=== PATIENT | female | born 1965 | race Hispanic/Latino ===

== ENCOUNTER 2019-03-15 10:59 | Emergency (ER) | payer BC ==
[2019-03-15 11:23] VITALS: BP 165/98; PULSE 88; RESP 18; TEMP 98.8; O2SAT 98
--- NOTE | 2019-03-15 13:33 | RAD ---
Date of service: 03/15/2019 PROCEDURE: Left Ankle Radiographs. HISTORY: s/p fall - r/o fx COMPARISON: None available. TECHNIQUE: 3 views obtained. FINDINGS: BONES: There is a displaced transverse fracture through the posterior medial malleolus JOINTS: Normal. No osteoarthritis. Ankle mortise maintained. Talar dome intact SOFT TISSUES: Normal. OTHER FINDINGS: None. IMPRESSION: There is a displaced transverse fracture through the posterior medial malleolus
--- NOTE | 2019-03-15 13:35 | RAD ---
Date of service: 03/15/2019 PROCEDURE: Left Foot Radiographs. HISTORY: s/p fall - r/o fx COMPARISON: None. TECHNIQUE: 3 views obtained. FINDINGS: BONES: Normal. No fracture. JOINTS: Normal. SOFT TISSUES: Normal. OTHER FINDINGS: Displaced fracture of the medial malleolus IMPRESSION: Fracture of the medial malleolus
--- NOTE | 2019-03-15 17:04 | ED PDOC ---
Arrival/HPI - General Chief Complaint: Lower Extremity Problem/Injury Historian: Patient - History of Present Illness Narrative History of Present Illness (Text): 03/15/19 16:50 A 53 year old female, whose past medical history includes , presents to the em ergency department complaining of left foot/ankle pain for 3 days. Patient reports she was walking down steps and missed the step, resulting in falling to the ground. She denies any symptoms prior to fall. Patient denies any head trauma, or any other complaints at this time. Time/Duration: < week (3 days) Past Medical History - Provider Review Nursing Documentation Reviewed: Yes - Infectious Disease Hx of Infectious Diseases: None - Reproductive Menopause: Yes - Cardiac Hx Cardiac Disorders: No - Pulmonary Hx Respiratory Disorders: No - Psychiatric Hx Substance Use: No - Anesthesia Hx Anesthesia Reactions: No Family/Social History - Physician Review Nursing Documentation Reviewed: Yes Family/Social History: No Known Family HX Smoking Status: Unknown If Ever Smoked Hx Alcohol Use: No Hx Substance Use: No Allergies/Home Meds Allergies/Adverse Reactions: Allergies No Known Allergies Allergy (Verified 03/15/19 11:23) Review of Systems - Physician Review All systems were reviewed & negative as marked: Yes - Review of Systems Constitutional: absent: Other (no head trauma) Musculoskeletal: Other (left ankle/foot) Physical Exam Vital Signs Reviewed: Yes Vital Signs Temp Pulse Resp BP Pulse Ox 03/15/19 11:19 98.8 F 88 18 165/98 H 98 Temperature: Afebrile Blood Pressure: Hypertensive Pulse: Regular Respiratory Rate: Normal Appearance: Positive for: Well-Appearing, Non-Toxic, Comfortable Pain Distress: None Mental Status: Positive for: Alert and Oriented X 3 - Systems Exam Head: Present: Atraumatic, Normocephalic Pupils: Present: PERRL Extroacular Muscles: Present: EOMI Conjunctiva: Present: Normal Mouth: Present: Moist Mucous Membranes Neck: Present: Normal Range of Motion Respiratory/Chest: Present: Clear to Auscultation, Good Air Exchange. No: Respiratory Distress, Accessory Muscle Use Cardiovascular: Present: Regular Rate and Rhythm, Normal S1, S2. No: Murmurs Abdomen: No: Tenderness, Distention, Peritoneal Signs Back: Present: Normal Inspection Upper Extremity: Present: Normal Inspection. No: Cyanosis, Edema Lower Extremity: Present: Normal ROM, Tenderness (medial aspect of left ankle), Swelling (left ankle/foot), Other (ecchymosis) Neurological: Present: GCS=15, CN II-XII Intact, Speech Normal Skin: Present: Warm, Dry, Normal Color. No: Rashes Psychiatric: Present: Alert, Oriented x 3, Normal Insight, Normal Concentration Medical Decision Making ED Course and Treatment: 03/15/19 17:05 Impression: 53 year old female with left foot/ankle pain s/p fall. Physical exam shows left ankle/foot swelling, left foot ecchymosis, tenderness to medial aspect of the ankle, good ROM. Plan: -- Left Ankle X-Ray -- Left Foot X-Ray -- Toradol -- Reassess and disposition Progress Notes: 03/15/2019 13:29 Left Ankle X-Ray IMPRESSION: There is a displaced tranverse fracture through the posterior medial malleolus. Dictator: Luan Monsalve MD 03/15/2019 13:31 Left Foot X-Ray IMPRESSION: Fracture of the medial malleolus. Dictator: Luan Monsalve MD 03/15/19 17:05 Posterior splint placed on left foot/ankle, good capillary refill. Patient will follow-up with ortho, and patient has been instructed to not bare weight on left leg. - RAD Interpretation Radiology Orders: 03/15/19 11:51 ANKLE LEFT 3 VIEWS ROUTINE [RAD] Stat FOOT LEFT 3 VIEWS ROUTINE [RAD] Stat - Medication Orders Current Medication Orders: Discontinued Medications Ketorolac Tromethamine (Toradol) 60 mg IM STAT STA Stop: 03/15/19 11:52 Last Admin: 03/15/19 12:07 Dose: 60 mg MAR Pain Assessment Document 03/15/19 12:07 CD (Rec: 03/15/19 12:08 CD [id number] Pain Reassessment Is this a pain reassessment? No Sleep Is patient sleeping during reassessment? No Presence of Pain Presence of Pain Yes Pain Scale Used Protocol: PSCALES Pain Scale Used Numeric Location Left, Right or Bilateral Left Pain Location Body Site Foot Description Description Intermittent Intensity of Pain at present 10 IM Administration Charges Document 03/15/19 12:07 CD (Rec: 03/15/19 12:08 CD [id number] Injection Site MAR Injection Site Left Gluteus Alex Charges for Administration # of IM Administrations 1 - Scribe Statement The provider has reviewed the documentation as recorded by the Stephen Adamson Provider Stephen Attestation: All medical record entries made by the Stephen were at my direction and personally dictated by me. I have reviewed the chart and agree that the record accurately reflects my personal performance of the history, physical exam, medical decision making, and the department course for this patient. I have also personally directed, reviewed, and agree with the discharge instructions and disposition. Disposition/Present on Arrival - Present on Arrival Any Indicators Present on Arrival: No History of DVT/PE: No History of Uncontrolled Diabetes: No Urinary Catheter: No History of Decub. Ulcer: No History Surgical Site Infection Following: None - Disposition Have Diagnosis and Disposition been Completed?: Yes Diagnosis: Ankle fracture Disposition: HOME/ ROUTINE Disposition Time: 13:15 Condition: GOOD Discharge Instructions (ExitCare): How to Use Crutches, Ankle Fracture (DC) Additional Instructions: UMA MOON, thank you for letting us take care of you today. The emergency medical care you received today was directed at your acute symptoms. If you were prescribed any medication, please fill it and take as directed. It may take several days for your symptoms to resolve. Return to the Emergency Department if your symptoms worsen, do not improve, or if you have any other problems. Please contact your doctor or call one of the physicians/clinics you have been referred to that are listed on the Patient Visit Information form that is included in your discharge packet. Bring any paperwork you were given at discharge with you along with any medications you are taking to your follow up visit. Our treatment cannot replace ongoing medical care by a primary care provider outside of the emergency department. Thank you for allowing the [facility] team to be part of your care today. Do not put any weight on your left leg. Follow up with your orthopedic doctor or the one supplied in this paperwork in the next 1-2 days. Prescriptions: oxyCODONE [oxyCODONE Immediate Release Tab] 5 mg PO Q6 PRN #15 tab PRN Reason: Pain, Severe (8-10) Referrals: Maikel Brady MD [Staff Provider] - Follow up with primary Forms: [employer] ([place])
== END 2019-03-15 14:20 | disposition home or self-care (01) ==
LOC: ED 10:59
DX: S82.52XA Displaced fracture of medial malleolus of left tibia, initial encounter for closed fracture (principal); W10.9XXA Fall (on) (from) unspecified stairs and steps, initial encounter
CPT/HCPCS: 73610; 73630; 96372; 99283; J1885

== ENCOUNTER 2019-03-17 10:55 | Inpatient (IN) | payer BC ==
[2019-03-17 11:16] VITALS: BMI 26.5
--- NOTE | 2019-03-17 11:21 | ED PDOC ---
Arrival/HPI - General Historian: Patient - History of Present Illness Narrative History of Present Illness (Text): 03/17/19 11:19 Fátima Gaviria is a 53 year old female, with no past medical history, who presents to the emergency department complaining of left ankle pain since 5 days ago s/p mechanical fall. Patient states missing a step when walking down the stairs and falling to the ground but denies head injury. Per visit on 03/15/2019, patient appreciates left ankle fracture and was advised to follow up with Dr. Zuñiga (Ortho) who was unable to make an appointment and advised patient to visit ED. Patient informs taking tylenol and aleve for pain. Patient is able to ambulate with crutches in the ED. Patient denies paresthesias, discoloration to left ankle, focal weakness, sensory deficits, or any other complaints. Time/Duration: < week (5 days) Symptom Course: Unchanged Activities at Onset: Light Context: Home Past Medical History - Provider Review Nursing Documentation Reviewed: Yes - Infectious Disease Hx of Infectious Diseases: None - Cardiac Hx Cardiac Disorders: No - Pulmonary Hx Respiratory Disorders: No - Psychiatric Hx Substance Use: No - Anesthesia Hx Anesthesia Reactions: No Family/Social History - Physician Review Nursing Documentation Reviewed: Yes Family/Social History: Unknown Family HX Smoking Status: Unknown If Ever Smoked Hx Alcohol Use: No Hx Substance Use: No Allergies/Home Meds Allergies/Adverse Reactions: Allergies No Known Allergies Allergy (Verified 03/15/19 11:23) Home Medications: Home Meds Medication Instructions Recorded Confirmed No Known Home Med 03/17/19 03/17/19 Review of Systems - Physician Review All systems were reviewed & negative as marked: Yes - Review of Systems Musculoskeletal: Arthralgias (left ankle pain secondary to fracture). absent: Other (discolorations to left ankle) Skin: absent: Other Neurological: absent: Focal Weakness, Other (sensory deficit, paresthesias) Physical Exam Vital Signs Reviewed: Yes Temperature: Afebrile Blood Pressure: Hypertensive Pulse: Tachycardic Respiratory Rate: Normal Appearance: Positive for: Well-Appearing, Non-Toxic, Comfortable Pain Distress: None Mental Status: Positive for: Alert and Oriented X 3 - Systems Exam Head: Present: Atraumatic, Normocephalic Pupils: Present: PERRL Extroacular Muscles: Present: EOMI Conjunctiva: Present: Normal Mouth: Present: Moist Mucous Membranes Neck: Present: Normal Range of Motion Respiratory/Chest: Present: Clear to Auscultation, Good Air Exchange. No: Respiratory Distress, Accessory Muscle Use, Wheezes, Rales, Rhonchi Cardiovascular: Present: Regular Rate and Rhythm, Normal S1, S2. No: Murmurs, Rub, Gallop Abdomen: Present: Normal Bowel Sounds. No: Tenderness, Distention, Peritoneal Signs, Rebound, Guarding Back: Present: Normal Inspection Upper Extremity: Present: Tenderness (medial aspect of left ankle), Swelling (left ankle/foot), Other (ecchymosis). No: Cyanosis, Edema Lower Extremity: Present: Other (posterior splint noted over RLE. Able to wiggle toes, no cyanosis noted to toes.). No: Edema Neurological: Present: Speech Normal, Motor Func Grossly Intact, Normal Sensory Function Skin: Present: Warm, Dry, Normal Color. No: Rashes Psychiatric: Present: Alert, Oriented x 3, Normal Insight, Normal Concentration Medical Decision Making ED Course and Treatment: 03/17/19 11:19 Impression: Patient is a 53 year old female, with no significant past medical history, who presents to the emergency department complaining of left ankle pain secondary to left ankle fracture s/p fall 5 days ago. Plan: -- Labs --CT lower extremity w/o contrast -- Chest X-Ray 1V -- Oxycodone -- POC Urine -- Urinalysis -- Reassess and disposition Prior Visits: Notes and results from previous visits were reviewed. Patient was last seen in the emergency department on 03/15/19. Progress Notes: 03/17/19 12:[address] Zuñiga(orthopedic surgery), who requests CT of lower extremity and will take patient to OR tomorrow. He requests consult per Dr. Julius pang(medical service) for medical optimization. 03/17/19 12:[address] Bar who accepts patient for admission. - Lab Interpretations Lab Results: 03/17/19 11:51 03/17/19 11:51 Lab Results 03/17/19 11:51: Blood Type A POSITIVE, Antibody Screen Negative, BBK History Checked No verified bt 03/17/19 11:51: Sodium 140, Potassium 3.5 L, Chloride 101, Carbon Dioxide 23, Anion Gap 20, BUN 13, Creatinine 0.5 L, Est GFR ( Amer) > 60, Est GFR (Non-Af Amer) > 60, Random Glucose 88, Calcium 9.5, Magnesium 1.4 L, Total Bilirubin 0.7, AST 35, ALT 18, Alkaline Phosphatase 96, Total Protein 7.6, Albumin 4.5, Globulin 3.1, Albumin/Globulin Ratio 1.4 03/17/19 11:51: WBC 7.9, RBC 3.83, Hgb 13.6, Hct 40.0, MCV 104.4, MCH 35.5 H, MCHC 34.0, RDW 12.8, Plt Count 271, MPV 10.0, Neut % (Auto) 65.9, Lymph % (Auto) 26.5, [place] % (Auto) 5.6, Eos % (Auto) 1.7, Baso % (Auto) 0.3, Lymph # (Auto) 2.1, [place] # (Auto) 0.4, Eos # (Auto) 0.1, Baso # (Auto) 0.02, Absolute Neuts (auto) 5.19 I have reviewed the lab results: Yes - RAD Interpretation Narrative RAD Interpretations (Text): 03/17/19 13:03 Chest X-Ray shows: IMPRESSION: No active disease. 03/17/19 13:26 CT Left Ankle shows: IMPRESSION: There is a displaced transverse fracture through the medial malleolus. There is a nondisplaced fracture through the posterior lateral articular surface of the tibia and a displaced fracture of the anterior lateral surface of the distal tibia through the articular surface. Applications Support Specialist: Radiologist - EKG Interpretation EKG Interpretation (Text): 03/17/19 11:35 Reviewed EKG, shows: Sinus Tachycardia at [address] abnormalities. QT Prolongation. Interpreted by ED Physician: Yes Type: 12 lead EKG - Scribe Statement The provider has reviewed the documentation as recorded by the Scribe Danny Mir All medical record entries made by the Scribe were at my direction and personally dictated by me. I have reviewed the chart and agree that the record accurately reflects my personal performance of the history, physical exam, medical decision making, and the department course for this patient. I have also personally directed, reviewed, and agree with the discharge instructions and disposition. Disposition/Present on Arrival - Present on Arrival History of DVT/PE: No History of Uncontrolled Diabetes: No Urinary Catheter: No History Surgical Site Infection Following: None - Disposition
[2019-03-17] MEDS ORDERED: Oxycodone/Acetaminophen 5/325 mg Tab PO STA (11:44)
[2019-03-17 12:10] LABS: BASO # 0.02 K/mm3 (0.0-2.0); BASO % 0.3 % (0.0-3.0); EOS # 0.1 (0.0-0.7); EOS % 1.7 % (1.5-5.0); HEMOGLOBIN 13.6 g/dL (12.0-16.0); LYMPH # 2.1 (1.2-3.4); LYMPH % 26.5 % (22.0-35.0); MEAN CELL VOLUME 104.4 fl (80.0-105.0); MEAN CORPUSCULAR HEMOGLOBIN 35.5 pg (25.0-35.0); MONO # 0.4 (0.1-0.6); MONO % 5.6 % (1.0-6.0); RBC 3.83 10^6/uL (3.5-6.1); RED CELL DISTRIBUTION WIDTH 12.8 % (11.5-14.5); WHITE BLOOD COUNT 7.9 10^3/uL (4.5-11.0)
[2019-03-17 12:11] LABS: ALB/GLOB RATIO 1.4 (1.1-1.8); ALBUMIN 4.5 g/dL (3.0-4.8); ALT/SGPT 18 U/L (7-56); AST/SGOT 35 U/L (14-36); BLOOD UREA NITROGEN 13 mg/dL (7-21); CALCIUM 9.5 mg/dL (8.4-10.5); GFR NON-AFRICAN AMERICAN > 60
--- NOTE | 2019-03-17 13:06 | RAD ---
Date of service: 03/17/2019 PROCEDURE: CHEST RADIOGRAPH, 1 VIEW HISTORY: pre op COMPARISON: None available. FINDINGS: LUNGS: Clear. PLEURA: No pneumothorax or pleural fluid seen. CARDIOVASCULAR: No aortic atherosclerotic calcification present. Normal. OSSEOUS STRUCTURES: No significant abnormalities. VISUALIZED UPPER ABDOMEN: Normal. OTHER FINDINGS: None. IMPRESSION: No active disease.
--- NOTE | 2019-03-17 13:30 | CT ---
Date of service: 03/17/2019 PROCEDURE: CT of the left ankle HISTORY: ankle fx COMPARISON: TECHNIQUE: Radiation dose: Total exam DLP = 449 mGy-cm. This CT exam was performed using one or more of the following dose reduction techniques: Automated exposure control, adjustment of the mA and/or kV according to patient size, and/or use of iterative reconstruction technique. FINDINGS: There is a displaced transverse fracture through the medial malleolus. There is a nondisplaced fracture through the posterior lateral articular surface of the tibia and a displaced fracture of the anterior lateral surface of the distal tibia through the articular surface. The fibula is intact. The talus is unremarkable. A plaster cast is in place IMPRESSION: There is a displaced transverse fracture through the medial malleolus. There is a nondisplaced fracture through the posterior lateral articular surface of the tibia and a displaced fracture of the anterior lateral surface of the distal tibia through the articular surface.
[2019-03-17 14:50] LABS: URINE BILIRUBIN NEGATIVE (NEGATIVE); URINE BLOOD TRACE-INTACT (NEGATIVE); URINE GLUCOSE (UA) NEGATIVE (NEGATIVE); URINE LEUKOCYTE ESTERASE NEGATIVE Leu/uL (NEGATIVE); URINE PROTEIN NEGATIVE mg/dL (<30 mg/dL); URINE UROBILINOGEN 0.2 E.U./dL (<1 E.U./dL)
[2019-03-17 14:51] LABS: URINE APPEARANCE CLEAR (CLEAR); URINE COLOR YELLOW (YELLOW)
[2019-03-17 14:54] LABS: INR 1.05; PARTIAL THROMBOPLASTIN TIME 32.9 Seconds (26.9-38.3); PROTHROMBIN TIME 11.6 SECONDS (9.4-12.5)
[2019-03-17 14:59] LABS: URINE WBC 0 - 2 /hpf (0-6)
[2019-03-17 15:00] LABS: URINE BACTERIA MOD /hpf; URINE FINE GRANULAR CAST 0 - 2 /hpf; URINE HYALINE CAST 0 - 2 /hpf
[2019-03-17] MEDS ORDERED: Magnesium Oxide 400 mg Tab UD PO STA (15:04)
[2019-03-17] MEDS ORDERED: Potassium Chloride 20 mEq ER Tab PO STA (15:06)
[2019-03-17] MEDS: Morphine 2 mg/ml ISec IVP PRN ×3 (15:14→21:24)
--- NOTE | 2019-03-17 18:00 | CARD ---
APPROVED REPORT Date of service: 03/17/2019 EKG Measurement Heart [id number] <Conclusion> Sinus tachycardia Otherwise normal ECG
[2019-03-17] MEDS: Sodium Chloride 0.45% 1,000 ML IV SCH (18:36)
[2019-03-17] MEDS ORDERED: Pneumococcal 23-Valent Vaccine IM ONE (22:04)
[2019-03-18] MEDS: Morphine 2 mg/ml ISec IVP PRN ×6 (00:36→23:26)
--- NOTE | 2019-03-18 01:45 | HP ---
DATE OF EXAM: 03/17/2019 HISTORY OF PRESENT ILLNESS: She is a nice 53-year-old female who presents after having a mechanical fall 5 days ago with left ankle pain, missed a step, fell down stairs, no head injury. She has a left ankle fracture. She was being followed by Dr. Zuñiga, the orthopedic doctor and he had sent her to the emergency room and called me and asked me if I would put her on my service. PAST MEDICAL HISTORY: She has no medical history. No diabetes. No hypertension. No coronary disease. No history of surgery. FAMILY HISTORY: Unknown family history. SOCIAL HISTORY: No smoker. No drinking. No drugs. ALLERGIES: NO ALLERGIES. CURRENT MEDICATIONS: No medications. REVIEW OF SYSTEMS: No vision changes. No hearing changes. No sore throat. No chest pain. No shortness of breath. No abdominal pain. No nausea, vomiting, constipation, or diarrhea. No palpitations. No cough. The only thing she has going on is the left ankle pain secondary to fracture. No neurological focal weakness or deficits that she knows of. PHYSICAL EXAMINATION VITAL SIGNS: She has a 97.8 temperature, 88 pulse, 136/87 blood pressure, 18 respiratory rate, and 98% O2 sat on room air. When she came in of course we put pain medications. She had 112 pulse with a 163/89 blood pressure that is now down after pain medication. HEENT: Head; atraumatic, normocephalic. Extraocular muscles are intact. Pupils equally react to light. Throat is moist. NECK: Supple. HEART: Regular rate. LUNGS: Decreased breath sounds but clear to auscultation. ABDOMEN: Soft, nontender. Positive bowel sounds. EXTREMITIES: The left leg is in a cast. NEUROLOGIC: GCS is 15. Cranial nerves II through XII grossly intact. LABORATORY DATA: The urine was trace blood, negative for leukocytes, moderate bacteria. No urinary tract symptoms. A 140 sodium, potassium is 3.5, I will replace the potassium, BUN 13, creatinine 0.5, GFR is greater than 60, sugar is 88, calcium is 9.5, magnesium is 1.4, I will replace the magnesium, total bili is 0.7. AST is 35, ALT is 18, alk phos 96, total protein 7.6, albumin is 4.5, globulin 3.1. INR is 1.05. White count 7.9, hemoglobin 38.6, hematocrit 40, platelets of 271. Chest x-ray showed no active disease. EKG showed sinus tachycardia at 111. Her lower extremity CT scan showed there was a displaced transverse fracture through the medial malleolus. There was a nondisplaced fracture through the posterolateral articular surface of the tibia and displaced fracture of the anterolateral surface of the distal tibia. ASSESSMENT AND PLAN: She is medically cleared for her procedure tomorrow with Dr. Zuñiga, the orthopedic doctor. I am hoping she will do quite well. She is not going to eat anything after midnight. She has pain medications ordered. She is on morphine 1 mg IV every 3 hours as needed. She is going to be on a little bit of IV fluids. She is medically cleared for surgery. Arias Bar DO
[2019-03-18 07:13] LABS: MEAN CELL VOLUME 104.3 fl (80.0-105.0); MEAN CORPUSCULAR HEMOGLOBIN 34.5 pg (25.0-35.0); MEAN CORPUSCULAR HGB CONC 33.1 g/dl (31.0-37.0); MEAN PLATELET VOLUME 9.7 fl (7.0-11.0); RBC 3.48 10^6/uL (3.5-6.1); RED CELL DISTRIBUTION WIDTH 12.8 % (11.5-14.5); WHITE BLOOD COUNT 6.6 10^3/uL (4.5-11.0)
[2019-03-18 07:26] LABS: ALB/GLOB RATIO 1.4 (1.1-1.8); ALBUMIN 3.7 g/dL (3.0-4.8); ALT/SGPT 15 U/L (7-56); AST/SGOT 26 U/L (14-36); BLOOD UREA NITROGEN 11 mg/dL (7-21); CALCIUM 9.1 mg/dL (8.4-10.5); GFR NON-AFRICAN AMERICAN > 60
[2019-03-18] MEDS ORDERED: Propofol 10 mg/ml Inj (20 ML) ONE (09:28)
[2019-03-18] MEDS ORDERED: Lidocaine 1% Inj (20ml) ONE (09:29)
[2019-03-18] MEDS ORDERED: Midazolam 2 MG/2 ML VIAL ONE (09:29)
[2019-03-18] MEDS ORDERED: Bupivacaine 0.5% 50 ML IJ ONE (10:04)
[2019-03-18] MEDS ORDERED: Bacitracin Ointment 30 GM TUBE ONE (10:04)
--- NOTE | 2019-03-18 10:46 | MRI ---
MRI left ankle History: Bimalleolar fracture. Evaluate syndesmosis. Comparison: CT scan dated 03/17/2019 Technique: Multi-echo multiplanar sequences were performed through the left ankle without the use of intravenous contrast. Findings: Again identified is a vertically oriented posterior malleolar fracture of the distal tibia with intra-articular extension. Again identified are prominent fracture deformities of the medial malleolus of the distal tibia with intra-articular extension from anterior to posteriorly. Again identified is a prominent fracture deformity of the anterolateral distal tibia at the level of the insertion of the anterior tibiofibular ligament/syndesmosis with intra-articular extension. This is better delineated on the CT scan where the fracture fragment of the anterolateral tibia appears displaced laterally and anteriorly to the distal fibula Complete rupture of the anterior tibiofibular ligament with diastasis of the anterior tibiofibular joint space measuring up to 7 millimeters. Adjacent hemorrhage and edema within the extensor digitorum muscle belly. Moderate grade sprain with partial tearing of the posterior tibiofibular ligament which inserts onto the posterior malleolar fracture fragment. Partial tearing with moderate grade sprain of the anterior talofibular ligament. Low-grade sprain of the posterior talofibular ligament. Prominent fraying and attenuation within the deep fibers of the deltoid ligament suggestive for prominent tearing with high grade sprain. Reticulation and edema within the circumferential subcutaneous soft tissues. Anterior extensor tendons are preserved. Moderate tenosynovitis of the medial flexor tendon sheaths. Peroneal tendons are preserved. Mild increased signal seen at the level of Lisfranc ligament which may represent a low grade sprain and or mild partial tear. Achilles tendon is preserved. Plantar fascia is preserved. 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 Small to moderate ankle joint effusion. Degenerative changes noted at the dorsal aspect of the talonavicular joint space. Bone bruising and or subchondral osseous injury seen within the distal pole of the medial cuneiform bone Prominence of the middle subtalar joint space. Impression: 1. Again identified is a vertically oriented posterior malleolar fracture of the distal tibia with intra-articular extension. 2. Again identified are prominent fracture deformities of the medial malleolus of the distal tibia with intra-articular extension from anterior to posteriorly. 3. Again identified is a prominent fracture deformity of the anterolateral distal tibia at the level of the insertion of the anterior tibiofibular ligament/syndesmosis with intra-articular extension. This is better delineated on the CT scan where the fracture fragment of the anterolateral tibia appears displaced laterally and anteriorly to the distal fibula 4. Complete rupture of the anterior tibiofibular ligament with diastasis of the anterior tibiofibular joint space measuring up to 7 millimeters. Adjacent hemorrhage and edema within the extensor digitorum muscle belly. 5. Moderate grade sprain with partial tearing of the posterior tibiofibular ligament which inserts onto the posterior malleolar fracture fragment. 6. Partial tearing with moderate grade sprain of the anterior talofibular ligament. 7. Low-grade sprain of the posterior talofibular ligament. 8. Prominent fraying and attenuation within the deep fibers of the deltoid ligament suggestive for prominent tearing with high grade sprain. 9. Reticulation and edema within the circumferential subcutaneous soft tissues. 10. Moderate tenosynovitis of the medial flexor tendon sheaths. 11. Mild increased signal seen at the level of Lisfranc ligament which may represent a low grade sprain and or mild partial tear. 12. 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 13. Small to moderate ankle joint effusion. 14. Degenerative changes noted at the dorsal aspect of the talonavicular joint space. 15. Bone bruising and or subchondral osseous injury seen within the distal pole of the medial cuneiform bone 16. Prominence of the middle subtalar joint space.
[2019-03-18] MEDS ORDERED: CeFAZolin 1 gm in NS 100ml IVPB ONE (11:05)
--- NOTE | 2019-03-18 11:07 | MRI ---
MRI left forefoot History: Injury. Comparison: CT dated 03/17/2019 Technique: Multi-echo sequences were the left forefoot without the use of intravenous contrast. Findings: Please see separate report for evaluation of the midfoot and ankle. Failure of fat suppression at the level of the phalanges somewhat limits evaluation. Prominent motion artifact on the sagittal STIR sequences, markedly limits evaluation at that level. Prominent reticulation edema within the circumferential subcutaneous soft tissues most prominent dorsally. Mild focal signal abnormality seen within the distal medial cuneiform bone at its lateral aspect as demonstrated on series 6 images 10 through 12 as well as series 4, image 22. This may represent some mild bone bruising and or subchondral osseous injury. This is at/near the site of insertion of the adjacent Lisfranc ligament which is best demonstrated on series 6 images 9 through 11 as well as series 4 images 21 through 24. There is some fraying with increased signal seen within the mid to volar aspect of the Lisfranc ligament which may represent a moderate grade sprain with some questionable partial tearing. Clinical correlation. Moderate hallux valgus deformity with prominent reactive edema and degenerative changes noted at the 1st MTP joint space with associated osteochondral change at the 1st metatarsal head. Superimposed subchondral osseous injury and or bone bruising at this level can't be excluded. Additional degenerative changes noted at the 1st metatarsus sesamoid joint space. Small amount of fluid noted at the 1st MTP joint space. Clinical correlation. Again identified is a vertically oriented posterior malleolar fracture of the distal tibia with intra-articular extension. Again identified are prominent fracture deformities of the medial malleolus of the distal tibia with intra-articular extension from anterior to posteriorly. Again identified is a prominent fracture deformity of the anterolateral distal tibia at the level of the insertion of the anterior tibiofibular ligament/syndesmosis with intra-articular extension. This is better delineated on the CT scan where the fracture fragment of the anterolateral tibia appears displaced laterally and anteriorly to the distal fibula Complete rupture of the anterior tibiofibular ligament with diastasis of the anterior tibiofibular joint space measuring up to 7 millimeters. Adjacent hemorrhage and edema within the extensor digitorum muscle belly. Moderate grade sprain with partial tearing of the posterior tibiofibular ligament which inserts onto the posterior malleolar fracture fragment. Partial tearing with moderate grade sprain of the anterior talofibular ligament. Low-grade sprain of the posterior talofibular ligament. Prominent fraying and attenuation within the deep fibers of the deltoid ligament suggestive for prominent tearing with high grade sprain. Moderate tenosynovitis of the medial flexor tendon sheaths. 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 Impression: Please see separate report for evaluation of the midfoot and ankle. Failure of fat suppression at the level of the phalanges somewhat limits evaluation. Prominent motion artifact on the sagittal STIR sequences, markedly limits evaluation at that level. 1. Prominent reticulation edema within the circumferential subcutaneous soft tissues most prominent dorsally. 2. Mild focal signal abnormality seen within the distal medial cuneiform bone at its lateral aspect as demonstrated on series 6 images 10 through 12 as well as series 4, image 22. This may represent some mild bone bruising and or subchondral osseous injury. This is at/near the site of insertion of the adjacent Lisfranc ligament which is best demonstrated on series 6 images 9 through 11 as well as series 4 images 21 through 24. There is some fraying with increased signal seen within the mid to volar aspect of the Lisfranc ligament which may represent a moderate grade sprain with some questionable partial tearing. Clinical correlation. 3. Moderate hallux valgus deformity with prominent reactive edema and degenerative changes noted at the 1st MTP joint space with associated osteochondral change at the 1st metatarsal head. Superimposed subchondral osseous injury and or bone bruising at this level can't be excluded. Additional degenerative changes noted at the 1st metatarsus sesamoid joint space. Small amount of fluid noted at the 1st MTP joint space. Clinical correlation. 4. Again identified is a vertically oriented posterior malleolar fracture of the distal tibia with intra-articular extension. 5. Again identified are prominent fracture deformities of the medial malleolus of the distal tibia with intra-articular extension from anterior to posteriorly. 6. Again identified is a prominent fracture deformity of the anterolateral distal tibia at the level of the insertion of the anterior tibiofibular ligament/syndesmosis with intra-articular extension. This is better delineated on the CT scan where the fracture fragment of the anterolateral tibia appears displaced laterally and anteriorly to the distal fibula 7. Complete rupture of the anterior tibiofibular ligament with diastasis of the anterior tibiofibular joint space measuring up to 7 millimeters. Adjacent hemorrhage and edema within the extensor digitorum muscle belly. 8. Moderate grade sprain with partial tearing of the posterior tibiofibular ligament which inserts onto the posterior malleolar fracture fragment. 9. Partial tearing with moderate grade sprain of the anterior talofibular ligament. Low-grade sprain of the posterior talofibular ligament. 10. Prominent fraying and attenuation within the deep fibers of the deltoid ligament suggestive for prominent tearing with high grade sprain. 12. Moderate tenosynovitis of the medial flexor tendon sheaths.
[2019-03-18] MEDS ORDERED: Rocuronium 10 mg/ml (5 ml) ONE (12:01)
[2019-03-18] MEDS ORDERED: Neostigmine Methylsulfate 3mg/3ml Syringe IV ONE (12:02)
[2019-03-18] MEDS ORDERED: Glycopyrrolate 0.2 mg/ml (2ml vial) ONE (12:02)
[2019-03-18] MEDS ORDERED: Bupivacaine 0.5% Inj(30mL) IJ ONE (12:49)
--- NOTE | 2019-03-18 13:35 | PN ---
DATE: 03/18/2019 SUBJECTIVE: She came in from Dr. Zuñiga, the orthopedic doctor with a fracture of the left ankle and she is going for surgery this morning. She is medically cleared to have the ORIF done. She is a very nice lady with no medical history at 53 years of age. PHYSICAL EXAMINATION: VITAL SIGNS: Temp 97.5, 74 pulse, 137/82 blood pressure, 19 respiratory rate, and 97% O2 sat on room air. HEENT: Head is atraumatic, normocephalic. HEART: Regular rate. LUNGS: Clear to auscultation. ABDOMEN: Soft. EXTREMITIES: No edema. The left extremity is in a cast. LABORATORY DATA: She has 6.6 white count, 12 hemoglobin, 36.3 hematocrit with 242 platelets. INR is 1.05. Sodium 139, potassium 4.2, BUN 11, creatinine 0.4, GFR is greater than 60, sugar is 99, calcium is 9.1, magnesium is 1.4, I gave her some magnesium yesterday. Total bili is 0.7, AST is 26, ALT is 15, alk phos 72, total protein 6.3. MEDICATIONS: She is currently on morphine and IV fluids. ASSESSMENT AND PLAN: She should do very well for her surgery today as per Orthopedics. I am not sure if she is to be discharged later or not. I will order labs for tomorrow just in case as per Orthopedics. She is medically cleared. Arias Bar DO MTDD
[2019-03-18] MEDS ORDERED: HYDROmorphone 1 mg/ml ISec IVP PRN (14:14)
[2019-03-18] MEDS ORDERED: Lactated Ringer's 1,000 ML IV SCH (14:15)
[2019-03-18] MEDS: HYDROmorphone 0.5 mg/0.5 ml ISec ONE ×2 (14:18→14:27)
[2019-03-18] MEDS ORDERED: Oxycodone/Acetaminophen 5/325 mg Tab PO PRN (14:19)
[2019-03-18] MEDS ORDERED: HYDROmorphone 0.5 mg/0.5 ml ISec ONE (14:22)
[2019-03-18] MEDS ORDERED: Bupivacaine 0.25% Inj(30mL) ONE (14:33)
[2019-03-18] MEDS ORDERED: HYDROmorphone 1 mg/ml ISec ONE (14:36)
[2019-03-18] MEDS ORDERED: EPINEPHrine 1 mg/ml (1:1000) Inj ONE (14:36)
--- NOTE | 2019-03-18 14:49 | RAD ---
Date of service: 03/18/2019 PROCEDURE: Fluoroscopy up to 1 hr HISTORY: ORIF LT ANKLE COMPARISON: TECHNIQUE: 186.6 sec of fluoro time. Cumulative dose 6.49 mGy. Ten images were submitted FINDINGS: The study shows placement of screws through the medial malleolus and a fixation device between the fibula and tibia. There is anatomic alignment. IMPRESSION: As above
--- NOTE | 2019-03-18 15:22 | PCM.ANESB2 ---
Popliteal Nerve Block - Popliteal Nerve Block Date of Procedure: 03/18/19 Anesthesiologist: Dr. Quinones Pre-Procedure Diagnosis: S/P ORIF left ankle fracture Post-Procedure Diagnosis: S/P ORIF left ankle fracture Procedure Performed: Popliteal Nerve Block Left - Procedure Popliteal Nerve Block: This procedure was explained to the patient that it is for post-operative pain management. Consent was obtained after a thorough discussion with the patient regarding the benefits and possible complications of local anesthetic block of the sciatic nerve at the popliteal level. The patient was brought to recoveery room after the surgery. Standard monitors are applied.Time-out was held with the PACU nurse to confirm the correct side and the appropriate block. After applying oxygen by nasal cannula and administering pain medication given to make patient comfortable. Patient's operative leg was gently raised and supported and the groove in between the biceps femoris and vastus lateralis muscles was carefully palpated. The skin approximately 8cm above the popliteal crease was then marked. The ultrasound transducer was then applied to the posterior thigh approximately 8cm above the popliteal crease in the transverse plane and the sciatic nerve before its division was visualized lateral to the popliteal artery and in between the bicep femoris and semimembranosus/semitendinosus muscles. After identification, the lateral portion of the thigh was prepped with Chloraprep solution and Lidocaine 1% was injected subcutaneously for topical anesthesia. At this point, a # 21 gauge Stimuplex insulated 4 inch needle was inserted into pre-marked area and advanced in a perpendicular direction. The needle was inserted above the ultrasound transducer in-plane towards the sciatic nerve in a [id number] direction. Needle advancement was performed carefully under direct ultrasound visualization. Nerve stimulator was used and dorsiflexion of the left foot was elicited at a current of 0.3MA. After repeated negative aspiration, 5cc of 0.25% bupivacaine with 1:200,000 epinephrine was injected and this was flowed with 20cc of 0.25% bupivacaine with 1:200,000 epinephrine. Under ultrasound guidance the local anesthetics were observed surrounding sciatic nerve . The needle was removed intact and sterile dressing was applied. The patient tolerated the popliteal nerve block well with stable vital signs.
--- NOTE | 2019-03-18 15:26 | PCM.ANESB3 ---
Femoral Nerve Block - Femoral Nerve Block Date of Procedure: 03/18/19 Anesthesiologist: Dr. Quinones Pre-Procedure Diagnosis: S/P ORIF left ankle fracture Post-Procedure Diagnosis: S/P ORIF left ankle fracture Procedure Performed: Femoral Nerve Block Left - Procedure Femoral Nerve Block: The procedure was explained to the patient that it is for the post-operative pain management. Consent was obtained after a thorough discussion with the patient regarding the benefits and possible complications of local anesthetic block of the femoral nerve at the inguinal crease area. The patient was brought to recovery room and standard monitors were applied. Time-out was held with the PACU nurse to confirm the correct side and the appropriate block. After applying oxygen by nasal cannula and administering IV pain medication, patient was placed in supine position with fully extended lower extremities and the left groin exposed. The femoral artery was then carefully palpated. The ultrasound transducer was then applied to this area in the transverse plane and the femoral nerve was visualized lateral to the femoral artery and underneath the fascia iliaca. After thorough identification, the inguinal crease area was prepped with Chloraprep solution and 1 % Lidocaine was injected subcutaneously for topical anesthesia. At this point, a #22 gauge Stimuplex 2-inch needle was inserted immediately lateral to the femoral artery pulse at the inguinal crease and advanced perpendicularly. The needle was inserted to the ultrasound transducer in-plane towards the femoral nerve in a [id number] direction. Needle advancement was performed carefully under direct ultrasound visualization. Nerve stimulator was used and twitch of the quadriceps muscle was obtained at current of 0.25MA. After negative aspiration, 5cc of 0.25% Bupivacaine with 1:200,000 epinephrine was injected and this was followed with 20cc of 0.25% Bupivacaine with 1:200,000 epinephrine. Under ultrasound guidance the local anesthetics were observed spreading below fascia iliaca and around the femoral nerve. The needle was removed intact and sterile dressing was applied. The patient had stable vital signs, was conscious and in no apparent distress. The patient tolerated the femoral nerve block well with stable vital signs.
--- NOTE | 2019-03-18 21:02 | CP.PCM.PN ---
Subjective - Date & Time of Evaluation Date of Evaluation: 03/18/19 Time of Evaluation: 21:01 - Subjective Subjective: Patient was seen at bedside. She complained of pain in leg and requested for a stronger pain medication. Medical record was reviewed. This 53 year old white woman was admitted after a mechanical fall 5 days ago,left ankle pain. Has PMH of no significant diseases. She is S/P left ankle ORIF. Magnesium level was 1.4 She received one dose of Magox. Objective - Vital Signs/Intake and Output Vital Signs (last 24 hours): Temp Pulse Resp BP Pulse Ox 98.2 F 98 H 17 158/73 H 99 03/18/19 14:54 03/18/19 14:54 03/18/19 14:54 03/18/19 14:54 03/18/19 14:54 Intake and Output: 03/18/19 03/19/19 18:59 06:59 Intake Total 0 Balance 0 - Medications Medications: Current Medications Enoxaparin Sodium (Lovenox) 40 mg SC DAILY LUDIVINA; Protocol Sodium Chloride (Sodium Chloride 0.45%) 1,000 mls @ 40 mls/hr IV .Q24H LUDIVINA Last Admin: 03/17/19 18:36 Dose: 40 mls/hr Magnesium Oxide (Mag-Ox) 400 mg PO Q2H LUDIVINA Stop: 03/18/19 23:01 Morphine Sulfate (Morphine) 2 mg IVP Q3H PRN PRN Reason: Pain, severe (8-10) Ondansetron HCl (Zofran Inj) 4 mg IVP ONCE PRN PRN Reason: Nausea/Vomiting Oxycodone/Acetaminophen (Percocet 5/325 Mg Tab) 1 tab PO Q4H PRN PRN Reason: Pain, moderate (4-7) Stop: 03/21/19 14:20 - Labs Labs: 03/18/19 07:00 03/18/19 07:00 PT 11.6 SECONDS (9.4-12.5) 03/17/19 14:24 INR 1.05 03/17/19 14:24 APTT 32.9 Seconds (26.9-38.3) 03/17/19 14:24 - Constitutional Appears: Well, No Acute Distress - Head Exam Head Exam: ATRAUMATIC, NORMAL INSPECTION, NORMOCEPHALIC - Eye Exam Eye Exam: Normal appearance - ENT Exam ENT Exam: Normal External Ear Exam - Neck Exam Neck Exam: Normal Inspection - Respiratory Exam Respiratory Exam: NORMAL BREATHING PATTERN - Cardiovascular Exam Cardiovascular Exam: absent: JVD - GI/Abdominal Exam GI & Abdominal Exam: absent: Distended - Rectal Exam Rectal Exam: Deferred - Exam Additional comments: Deferred. - Extremities Exam Additional comments: Left leg wrapped with noelle bandage. - Back Exam Back Exam: NORMAL INSPECTION - Neurological Exam Neurological Exam: Alert, Awake, Oriented x3 - Psychiatric Exam Psychiatric exam: Normal Affect, Normal Mood - Skin Skin Exam: Normal Color Assessment and Plan - Assessment and Plan (Free Text) Assessment: S/P Mechanical fall. Left ankle fracture. S/P Left ankle ORIF. Hypomagnesemia. Plan: Change morphine to 2 mg IV Q3H. Will not call PMD at this time to change above order. Will give Magox 400 mg PO x 2 and repeat magnesium level in AM.
[2019-03-18] MEDS: Magnesium Oxide 400 mg Tab UD PO SCH ×2 (21:22→23:19)
--- NOTE | 2019-03-18 23:49 | CP.PCM.CON ---
History of Present Illness - History of Present Illness History of Present Illness: 53-year-old female with no significant past medical history presented to the ER at [facility] on 03/17/19 with LEFT ankle pain and difficulty with weightbearing since 03/12/19. she states that on 03/12/19, she was walking down the stairs at her building, she missed a step and fell to the ground landing on left ankle. This resulted in immediate 10/10 pain localized to the medial aspect of the ankle and globally. She was unable to tolerate weightbearing on left lower extremity. When the pain and swelling did not improve with rest, she went to the ER at [facility] on 03/15/19. After evaluation by ER staff and mikhail mcguire of imaging, she was diagnosed with left ankle displaced fracture. She was placed in a posterior and U-splint and given crutches, instructed to be strict nonweightbearing left lower extremity and to follow-up with an orthopedic surgeon as an outpatient. She was having difficulty making appointments and the pain continued. She returned to the ER at [facility] on 03/17/19. Orthopedic consultation was placed and I reviewed the imaging and had discussion with ER attending about the status of the patient. The patient lives alone and was having difficulty. She is an active, healthy woman, community ambulator without assistive devices. It was the patient's desire to treat her injury as soon as possible as her pain was not well controlled with pain medication by mouth. I personally examined and had a long discussion with the patient in ER on 03/17/19. She confirmed the above history. Pain was rated 7-8/10 and constant, alleviated somewhat with elevation and ice. She denied any numbness or tingling. She denied any head trauma or LOC, denied syncopal episode and can recall the entire event/fall/trauma. Denied calf pain. She was very adamant about proceeding with surgical intervention if indicated as soon as possible due to the nature of her work. 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 She did not want to delay her treatment and as a result increase her time off from work unnecessarily. she denies chest pain, shortness of breath, headache, nausea or vomiting, numbness or tingling, fevers or chills, and calf pain. 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 The pertinent review of systems was reviewed with the patient and were all negative except the musculoskeletal complaint of left ankle pain. Review of imaging: x-rays done the [facility] on 03/15/19: Left foot x-rays: No evidence of midfoot or forefoot fractures, normal alignment, no evidence of Lisfranc widening Left ankle x-rays: + + Displaced medial malleolus fracture, + + non-displaced posterior malleolus fracture, + + mild syndesmotic widening on mortise view CT Left ankle done at [facility] on 03/17/19: (done after placement in short leg cast) ++ displaced medial malleolus fracture, + + nondisplaced posterior malleolus fracture, + + small multiple loose bodies at medial shoulder tibiotalar joint,+ + small anterior lateral distal tibia avulsion fragment most likely from syndesmosis insertion resulting in the syndesmotic instability seen, intact fibula, intact talus, + + syndesmotic instability/widening On my review of the CT and x-rays: Displaced medial malleolus fracture, unstable ankle joint, syndesmotic instability/injury, displaced small avulsion fracture anterior lateral aspect distal tibia most likely representing avulsion of the anterior syndesmotic fibers distally, multiple small loose bodies medial aspect tibiotalar joint. Past Patient History - Infectious Disease Hx of Infectious Diseases: None - Past Social History Smoking Status: Never Smoked - CARDIAC Hx Cardiac Disorders: No - PULMONARY Hx Respiratory Disorders: No - NEUROLOGICAL Hx Neurological Disorder: No - HEENT Hx HEENT Problems: Yes (eyeglasses) - RENAL Hx Chronic Kidney Disease: No - ENDOCRINE/METABOLIC Hx Endocrine Disorders: No - HEMATOLOGICAL/ONCOLOGICAL Hx Blood Disorders: No - INTEGUMENTARY Hx Dermatological Problems: No - MUSCULOSKELETAL/RHEUMATOLOGICAL Hx Musculoskeletal Disorders: Yes - GASTROINTESTINAL Hx Gastrointestinal Disorders: No - GENITOURINARY/GYNECOLOGICAL Hx Genitourinary Disorders: No - PSYCHIATRIC Hx Substance Use: No - SURGICAL HISTORY Hx Surgeries: Yes - ANESTHESIA Hx Anesthesia Reactions: No Meds Allergies/Adverse Reactions: Allergies Allergy/AdvReac Type Severity Reaction Status Date / Time No Known Allergies Allergy Verified 03/15/19 11:23 - Medications Medications: Current Medications Enoxaparin Sodium (Lovenox) 40 mg SC DAILY LUDIVINA; Protocol Sodium Chloride (Sodium Chloride 0.45%) 1,000 mls @ 40 mls/hr IV .Q24H LUDIVINA Last Admin: 03/17/19 18:36 Dose: 40 mls/hr Morphine Sulfate (Morphine) 2 mg IVP Q3H PRN PRN Reason: Pain, severe (8-10) Last Admin: 03/18/19 23:26 Dose: 2 mg Ondansetron HCl (Zofran Inj) 4 mg IVP ONCE PRN PRN Reason: Nausea/Vomiting Oxycodone/Acetaminophen (Percocet 5/325 Mg Tab) 1 tab PO Q4H PRN PRN Reason: Pain, moderate (4-7) Stop: 03/21/19 14:20 Physical Exam - Constitutional Additional comments: Vital Signs Stable - Extremities Exam Additional comments: secondary survey negative General: NAD, AAO 3 Right lower extremity: No area of TTP, no swelling/warmth/erythema, skin intact, no instability Full range of motion at all joints without pain +5/5 motor strength hip flexion/extension, knee flexion/extension, ankle dorsiflexion/plantar flexion, toes up and down Sensory intact L2-S1, deep peroneal nerve/tibial nerve/superficial peroneal nerve/sural nerve 2+ dorsalis pedis pulse, brisk cap refill all toes calf soft and nontender bilaterally Left lower extremity: ANKLE:+ + TTP medial malleolus and distal tib-fib, 1+ swelling globally especially at medial malleolus and distal tib-fib Skin intact, no warmth/erythema, Full range of motion without pain at the hip, knee, toes +5/5 motor strength hip flexion/extension, knee flexion/extension, toes up and down +5/5 motor strength in ankle dorsiflexion/plantar flexion with pain Sensory intact L2-S1, deep peroneal nerve/tibial nerve/superficial peroneal nerve/sural nerve 2+ dorsalis pedis pulse, brisk cap refill all toes Results - Vital Signs Recent Vital Signs: Last Vital Signs Temp 98.7 F 03/18/19 22:44 Pulse 93 H 05/10/19 22:44 Resp 18 03/18/19 22:44 BP 105/68 03/18/19 22:44 Pulse Ox 96 03/18/19 22:44 - Labs Result Diagrams: 03/18/19 07:00 03/18/19 07:00 Labs: Laboratory Results - last 24 hr 03/18/19 03/18/19 07:00 07:00 WBC 6.6 RBC 3.48 L Hgb 12.0 Hct 36.3 MCV 104.3 MCH 34.5 MCHC 33.1 RDW 12.8 Plt Count 242 MPV 9.7 Sodium 139 Potassium 4.2 Chloride 103 Carbon Dioxide 28 Anion Gap 11 BUN 11 Creatinine 0.4 L Est GFR ( Amer) > 60 Est GFR (Non-Af Amer) > 60 Random Glucose 99 Calcium 9.1 Total Bilirubin 0.7 AST 26 ALT 15 Alkaline Phosphatase 72 Total Protein 6.3 Albumin 3.7 Globulin 2.7 Albumin/Globulin Ratio 1.4 Assessment & Plan (1) Ankle fracture, bimalleolar, closed Assessment and Plan: 53-year-old female with left ankle pain, swelling, inability to weightbearing since fall while going down steps 03/12/19 DX = left ankle: #1 displaced medial malleolus fracture #2 nondisplaced posterior malleolus fracture #3 displaced small avulsion fracture anterolateral distal tibia (syndesmotic avulsion) #4 syndesmotic tear and instability (complete tear anterior syndesmotic fibers) #5 multiple small loose bodies medial aspect of tibiotalar joint PROCEDURE = after having a long discussion with the patient, previous splint removed and soft tissue examined, risks/benefits/alternatives to closed reduction and placement in a well-padded short leg cast discussed at length with the patient, well-padded short leg cast was placed with manipulation of ankle joint and medial malleolus fracture. Patient tolerated procedure well and was neurovascularly intact post procedure. Plan: L ankle: -CT was ordered in the ER and done prior to completion of this document after placement in cast. -Clinically and confirmed on imaging, displaced medial malleolus fracture, nondisplaced posterior malleolus fracture (less than 10% of articular surface), displaced small avulsion fracture anterior lateral distal tibia, syndesmotic instability. -We discussed treatment options including closed reduction and treatment with serial casting versus surgery/open reduction internal fixation. We also discussed attempting to be discharged again and performing surgery as an outpatient over the next week or 2. 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 If surgery is indicated to maintain her active lifestyle then she would like to proceed with surgery as soon as possible. Her pain has been difficult to control as an outpatient with pain medication by mouth since being discharged from the ER 03/15/19. -currently, her swelling is acceptable to proceed with surgery tomorrow. The bony anatomy of the ankle including distal fibula and distal tibia/medial malleolus is easily palpated, currently 1+ swelling at the most. -Neurovascularly intact. -Indicated for surgery = left ankle open reduction internal fixation medial mal leolus fracture, closed treatment posterior malleolus fracture (posterior malleolus fragment is less than 8-10% of the articular surface), evaluation of syndesmotic instability and most likely syndesmotic fixation, arthrotomy tibiotalar joint and exploration/evaluation with removal of multiple loose bodies, and all related indicated procedures. -The risks/benefits/alternatives to surgery were discussed at length with the patient with the risks included not limited to infection, neurovascular damage, malunion, nonunion, need for further surgery, failure of hardware, failure of fixation, posttraumatic DJD, complex regional pain syndrome, development of blood clots including DVT and PE, development of chronic pain and disability, inability to return to preinjury level of activity and occupation, perioperative cardiopulmonary complications, anesthesia reactions including . After answering all of her questions, she stated that she understood the risks and wished to proceed with surgery. -I spent a long time reviewing her imaging and other picture examples with her. I showed her pictures of the medial malleolus screws and the Arthrex syndesmotic tight rope fixation system. After answering all of her questions, she stated that she had a good understanding of her diagnosis as well as the multiple parts of the proposed procedure. After the CT was completed, I reviewed the imaging at length and contacted the patient over the phone to discuss CT findings in detail. She understood that the small syndesmotic avulsion fragment/distal tibia anterior lateral aspect small avulsion displaced fracture was a very small fragment despite the appearance on CT. We will evaluate the fragment clinically/in person during the procedure and if indeed it is large enough and has good quality and amenable to internal fixation with a screw or anchor then we would proceed with internal fixation of that fragment. the anterior syndesmotic ligaments will also be evaluated to determine if the fibers themselves are intact and still attached to the avulsion fragment. If the anterior syndesmotic ligament fibers are completely torn and not even attached to this small fragment, then fixation of the fragment does not aid in achieving syndesmotic stability or closing down the syndesmotic space/widening. Placement of fixation hardware in that region, being the distal tib-fib joint and also involving a small portion of the anterolateral articular surface can have its own problems as well. Most likely, the fragment will be treated conservatively if it does not appear to be causing any mechanical issues if left alone and the anterior syndesmotic ligament fibers are indeed completely det ached from the fragment. if any other significant findings are encountered during surgery, she has c onsented to proceeding and treating as indicated. -we discussed the postoperative rehabilitation protocol/postoperative course at length. She understands the need for compliance with the postoperative instructions including cast care and strict nonweightbearing left lower extremity for 6-8 weeks postop. She understands the need for compliance with the postop protocol/recommendations/instructions and the need for compliance in order to maximize the chances of having successful outcome after surgery. -she will be admitted to the medical service under Dr. Arias Bar. I have spoken to Dr. Bar personally and communicated the diagnosis and surgical plan. He will evaluate the patient medically and provide risk stratification/medical clearance. If there is indication for further medical or cardiac workup preoperatively, then he will contact me and surgery will be postponed. -We discussed DVT prophylaxis options postoperatively. After having a long discussion, the patient admitted that she does not deal with pain well and most likely will be very sedentary postoperatively. She requested best DVT prophylaxis option and was willing to self administer Lovenox injections. We decided to proceed with 40 mg Lovenox subcutaneous injection once daily for 2 weeks starting postoperative day #1. -NPO after midnight -IV fluid hydration -Strict nonweightbearing left lower extremity -Left ankle elevation above the level of her heart as much as possible -Ice to left ankle -Preoperative labs, EKG, chest x-ray ordered -Placed on the elective OR schedule for Thursday03/18/19, tomorrow at 10 AM. -Stat MRI left ankle/foot ordered to better evaluate the ligaments of foot and ankle, syndesmotic ligaments. She also states that she has been planning to undergo bunion surgery in the near future with her recooperer who was requesting an MRI prior to proceeding with the surgery. In anticipation of placement of hardware and and need for MRI potentially soon after the hardware is placed, it is valid to perform this MRI prior to surgery tomorrow and placement of hardware. -She may be discharged tomorrow/Thursday or kept overnight and work with physical therapy postop/Thursday morning to confirm safe crutch or walker ambulation especially with stairs. She lives alone and has 8 flights of stairs at home to get to the third floor where her apartment is. She is working on trying to find a more comfortable environment for the immediate postoperative period such as friend or family home with first floor access and minimal stairs. -She will be discharged with prescription for Percocet for pain control and Lovenox for DVT prophylaxis for 2 weeks -She will follow up in my office on 03/22/19 at 9 AM at [facility], [facility]. She has been given information about the location of my office and contact info. - I will monitor her progress preoperatively. -Please contact me directly with any questions, updates, concerns at [phone] Thank you for allowing me to contribute to the care of your patient. Maikel Zuñiga MD Orthopedic surgery Status: Acute (2) Syndesmotic disruption of left ankle Status: Acute
--- NOTE | 2019-03-18 23:50 | PCM.SURG1 ---
Surgeon's Initial Post Op Note - Surgeon's Notes Surgeon: Maikel Zuñiga MD Bilingual Recruiter: Joe Tavarez PA-C Type of Anesthesia: General Endo, [facility] Pre-Operative Diagnosis: Left Ankle: #1 Displaced Bimalleolar fracture (medial and posterior mal fractures). #2 syndesmotic injury. #3 Loose Bodies within tibiotalar joint. #4 unstable/subluxed tibiotalar joint Operative Findings: Left Ankle: #1 Displaced Bimalleolar fracture (medial and posterior mal fractures). #2 syndesmotic injury (remained unstable post-ORIF medial mal). #3 Loose Bodies within tibiotalar joint (multiple osteochondral fragments). #4 unstable/subluxed tibiotalar joint. 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 #6 post-traumatic synovitis tibiotalar joint Post-Operative Diagnosis: Left Ankle: #1 Displaced Bimalleolar fracture (medial and posterior mal fractures). #2 syndesmotic injury (remained unstable post- ORIF medial mal). #3 Loose Bodies within tibiotalar joint (multiple osteochondral fragments). #4 unstable/subluxed tibiotalar joint. #5 chondromalacia talar dome ([id number] grade 3 injury lateral talar dome). #6 post- traumatic synovitis tibiotalar joint Operation Performed: Left Ankle Open: #1 ORIF Bimalleolar Fracture. #2 syndesmotic fixation. #3 Arthrotomy tibiotalar joint/ open exploration and removal multiple loose bodies. #4 Arthrotomy tibiotalar joint / open extensive synovectomy. #5 placement in short leg cast (bivalved) Specimen/Specimens Removed: specimen= multiple loose bodies (osteochondral and martin fragments). complications= none. tourniquet time= 40 min @ 250mmHg. Implants= Arthrex #1 syndesmotic tightrope system x2, #2 tightrope buttress 2- hole plate, #3 partially threaded cancelous scews, 4.0mm x2 for medial mal ORIF (60mm & 45mm lengths) with washers Estimated Blood Loss: EBL {In ML}: 20 Blood Products Given: N/A Drains Used: No Drains Post-Op Condition: Good Date of Surgery/Procedure: 03/18/19 Time of Surgery/Procedure: 13:30
[2019-03-19] MEDS: Sodium Chloride 0.45% 1,000 ML IV SCH (01:09)
[2019-03-19] MEDS: ceFAZolin IV 2 gm in Dextrose 2 GM/50 ML BAG IVPB SCH ×4 (01:09→21:54)
--- NOTE | 2019-03-19 02:33 | CP.PCM.PN ---
Subjective - Date & Time of Evaluation Date of Evaluation: 03/18/19 Time of Evaluation: 10:00 - Subjective Subjective: patient seen and examined in preoperative holding area. Pain is rated 6/10 despite receiving morphine 2 mg IV just before being transpor yannick. Denies numbness or tingling, calf pain, shortness of breath, chest pain, chest palpitations, nausea or vomiting, or any other complaints. She is very eager to proceed with the surgery. MRI left ankle done today was read as: 1. nondisplaced vertically oriented posterior malleolar fracture of the distal tibia with intra-articular extension. 2. displaced fracture deformities of the medial malleolus of the distal tibia with intra-articular extension from anterior to posteriorly. 3. displaced fracture at anterolateral distal tibia at the level of the insertion of the anterior tibiofibular ligament/syndesmosis with intra-articular extension. This is better delineated on the CT scan where the fracture fragment of the anterolateral tibia appears displaced laterally and anteriorly to the d istal fibula 4. Complete rupture of the anterior tibiofibular ligament with diastasis of the anterior tibiofibular joint space measuring up to 7 millimeters. Adjacent hemorrhage and edema within the extensor digitorum muscle belly. 5. Moderate grade sprain with partial tearing of the posterior tibiofibular ligament which inserts onto the posterior malleolar fracture fragment. 6. Partial tearing with moderate grade sprain of the anterior talofibular ligament. 7. Low-grade sprain of the posterior talofibular ligament. 8. Prominent fraying and attenuation within the deep fibers of the deltoid ligament suggestive for prominent tearing with high grade sprain. 9. Reticulation and edema within the circumferential subcutaneous soft tissues. 10. Moderate tenosynovitis of the medial flexor tendon sheaths. 11. Mild increased signal seen at the level of Lisfranc ligament which may represent a low grade sprain and or mild partial tear. \ 12. 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 13. Small to moderate ankle joint effusion. 14. Degenerative changes noted at the dorsal aspect of the talonavicular joint space. 15. Bone bruising and or subchondral osseous injury seen within the distal pole of the medial cuneiform bone on my review of the MRI: + Nondisplaced posterior malleolus fracture, + displaced medial malleolus fracture, + syndesmotic widening and complete disruption of anterior syndesmotic ligament fibers, + small avulsion fracture distal tibia anterolateral aspect most likely syndesmotic avulsion anterior fibers, medial cuneiform bone bruising, partial tearing anterior talofibular ligament (ATFL)/deltoid ligament, sprain Lisfranc ligament, and multiple loose bodies at the medial aspect tibiotalar joint. Objective - Vital Signs/Intake and Output Vital Signs (last 24 hours): Temp Pulse Resp BP Pulse Ox 98.7 F 93 H 18 105/68 96 03/18/19 22:44 03/18/19 22:44 03/18/19 22:44 03/18/19 22:44 03/18/19 22:44 Intake and Output: 03/18/19 03/19/19 18:59 06:59 Intake Total 0 540 Balance 0 540 - Medications Medications: Current Medications Enoxaparin Sodium (Lovenox) 40 mg SC DAILY [facility]; Protocol Sodium Chloride (Sodium Chloride 0.45%) 1,000 mls @ 40 mls/hr IV .Q24H [facility] Last Admin: 03/19/19 01:09 Dose: 40 mls/hr Cefazolin Sodium/Dextrose (Ancef Iv 2 Gm Duplex) 2 gm in 50 mls @ 50 mls/hr IVPB Q8 [facility]; Protocol Stop: 03/21/19 23:59 Last Admin: 03/19/19 01:09 Dose: 50 mls/hr Morphine Sulfate (Morphine) 2 mg IVP Q3H PRN PRN Reason: Pain, severe (8-10) Last Admin: 03/18/19 23:26 Dose: 2 mg Ondansetron HCl (Zofran Inj) 4 mg IVP ONCE PRN PRN Reason: Nausea/Vomiting Oxycodone/Acetaminophen (Percocet 5/325 Mg Tab) 2 tab PO Q4H PRN PRN Reason: Pain, moderate (4-7) Stop: 03/21/19 14:20 - Labs Labs: 03/18/19 07:00 03/18/19 07:00 PT 11.6 SECONDS (9.4-12.5) 03/17/19 14:24 INR 1.05 03/17/19 14:24 APTT 32.9 Seconds (26.9-38.3) 03/17/19 14:24 - Extremities Exam Additional comments: General: NAD, AAO 3 Right lower extremity: No area of TTP, no swelling/warmth/erythema, skin intact, no instability Full range of motion at all joints without pain +5/5 motor strength hip flexion/extension, knee flexion/extension, ankle dorsiflexion/plantar flexion, toes up and down Sensory intact L2-S1, deep peroneal nerve/tibial nerve/superficial peroneal nerve/sural nerve 2+ dorsalis pedis pulse, brisk cap refill all toes calf soft and nontender bilaterally Left lower extremity: (bivalved cast removed and ankle examined, especially soft tissue and swelling) ANKLE:+ + TTP medial malleolus and distal tib-fib, 1+ swelling globally especially at medial malleolus and distal tib-fib Skin intact, no warmth/erythema, Full range of motion without pain at the hip, knee, toes +5/5 motor strength hip flexion/extension, knee flexion/extension, toes up and down +5/5 motor strength in ankle dorsiflexion/plantar flexion with pain Sensory intact L2-S1, deep peroneal nerve/tibial nerve/superficial peroneal nerv e/sural nerve 2+ dorsalis pedis pulse, brisk cap refill all toes Assessment and Plan (1) Ankle fracture, bimalleolar, closed Assessment & Plan: 53-year-old female with left ankle pain, swelling, inability to weightbearing since fall while going down steps 03/12/19 DX = left ankle: #1 displaced medial malleolus fracture #2 nondisplaced posterior malleolus fracture #3 displaced small avulsion fracture anterolateral distal tibia (syndesmotic avu lsion) #4 syndesmotic tear and instability (complete tear anterior syndesmotic fibers) #5 multiple small loose bodies medial aspect of tibiotalar joint #6 ATFL (anterior talofibular ligament) partial tear #7 deltoid ligament partial tear #8 Lisfranc sprain/partial tear (stable) #9 Medial cuneiform bone bruise PROCEDURE = after having a long discussion with the patient, previous splint removed and soft tissue examined, risks/benefits/alternatives to closed reduction and placement in a well-padded short leg cast discussed at length with the patient, well-padded short leg cast was placed with manipulation of ankle joint and medial malleolus fracture. Patient tolerated procedure well and was n eurovascularly intact post procedure. Plan: L ankle: -Clinically and confirmed on imaging, displaced medial malleolus fracture, nondisplaced posterior malleolus fracture (less than 10% of articular surface), displaced small avulsion fracture anterior lateral distal tibia, syndesmotic instability, partial tears ATFL/deltoid ligaments, sprain Lisfranc ligament, bone bruise medial cuneiform, multiple small loose bodies medial aspect tibiotalar joint. -currently, her swelling is acceptable to proceed with surgery today. The bony anatomy of the ankle including distal fibula and distal tibia/medial malleolus is easily palpated, currently 1+ swelling at the most. Swelling has much improved since evaluation yesterday with the short leg cast placement and good compliance with elevation above the level of her heart as much as possible since admission. -Neurovascularly intact. -Indicated for surgery = left ankle open reduction internal fixation medial malleolus fracture, closed treatment posterior malleolus fracture (posterior malleolus fragment is less than 8-10% of the articular surface), evaluation of syndesmotic instability and planned syndesmotic fixation, arthrotomy tibiotalar joint and exploration/evaluation with removal of multiple loose bodies, and all related indicated procedures including: evaluation of distal tibia anterior lateral avulsion fragment and possible internal fixation if indicated, evaluation under anesthesia and fluoroscopy of Lisfranc ligament and fixation if indicated (very unlikely, appears to be stable on CT and MRI), evaluation under anesthesia ATFL and deltoid ligament instability that will be treated conservatively. -The risks/benefits/alternatives to surgery were discussed at length with the patient with the risks included not limited to infection, neurovascular damage, malunion, nonunion, need for further surgery, failure of hardware, failure of fixation, posttraumatic DJD, complex regional pain syndrome, development of blood clots including DVT and PE, development of chronic pain and disability, inability to return to preinjury level of activity and occupation, perioperative cardiopulmonary complications, anesthesia reactions including . After answering all of her questions, she stated that she understood the risks and wished to proceed with surgery. -I spent a long time reviewing her imaging with her including x-rays yesterday as well as CT and MRI select images today. Yesterday, I showed her pictures of the medial malleolus screws and the Arthrex syndesmotic tight rope fixation system. After answering all of her questions again, she stated that she had a good understanding of her diagnosis as well as the multiple parts of the proposed procedure. We discussed the other injuries aside from the medial malleolus fracture, posterior malleolus fracture, syndesmotic injury, and loose bodies including Lisfranc sprain/partial tear, ATFL partial tear, deltoid ligament partial tear, syndesmotic avulsion/small displaced avulsion fragment distal tibia anterior lateral aspect, and medial cuneiform bone bruise. I explained that our surgical plan would include detailed examination under anesthesia and fluoroscopy of the ligaments. She understood that the ATFL and deltoid partial tears will be treated conservatively and most likely will scar in nicely in the cast/immobilization postop. She also understood that the Lisfranc ligament sprain/partial tear was stable and most likely would not require any surgical intervention/treated conservatively as well and will scar in as well with postop immobilization. She also understood that the small syndesmotic avulsion fragment/distal tibia anterior lateral aspect small avulsion displaced fracture was a very small fragment despite the appearance on CT. We will evaluate the fragment clinically/in person during the procedure after the surgical approach to the distal fibula for syndesmotic fixation and if indeed it is large enough and has good quality bone and amenable to internal fixation with a screw or anchor then we would proceed with internal fixation of that fragment. There was also consideration that on the MRI the syndesmotic anterior ligaments appeared to be completely torn and may not even be attached to that fragment. Placement of fixation hardware in that region being the distal tib-fib joint and also involving a small portion of the anterolateral articular surface can have its own problems as well. Most likely, the fragment will be treated conservatively if it does not appear to be causing any mechanical issues if left alone. If any other significant findings are encountered during surgery, she has consented to proceeding and treating as indicated. -we discussed the postoperative rehabilitation protocol/postoperative course at length. She understands the need for compliance with the postoperative instructions including cast care and strict nonweightbearing left lower extremity for 6-8 weeks postop. She understands the need for compliance with the postop protocol/recommendations/instructions and the need for compliance in order to maximize the chances of having successful outcome after surgery. -We discussed DVT prophylaxis options postoperatively. After having a long discussion, the patient stated that she does not deal with pain well and most likely will be very sedentary postoperatively. She requested best DVT prop hylaxis option and was willing to self administer Lovenox injections. We decided to proceed with 40 mg Lovenox subcutaneous injection once daily for 2 weeks starting postoperative day #1. -Strict nonweightbearing left lower extremity -Left ankle elevation above the level of her heart as much as possible -Ice to left ankle -Preoperative labs, EKG, chest x-ray reviewed. -She may be discharged today postop or kept overnight and work with physical therapy tomorrow/Thursday morning to confirm safe crutch or walker ambulation especially with stairs. She lives alone and has 8 flights of stairs at home to get to the third floor where her apartment is. She is working on trying to find a more comfortable environment for the immediate postoperative period such as friend or family home with first floor access and minimal stairs. -She will be discharged with prescription for Percocet for pain control and Lovenox for DVT prophylaxis for 2 weeks -She will follow up in my office on 03/22/19 at 9 AM at [facility]. She has been given information about the location of my office and contact info. - I will monitor her progress postoperative. -Proceeding with surgery today. -please contact me with any questions, concerns, updates at [phone]. Thank you for allowing me to contribute to the care of your patient. Maikel Zuñiga MD Orthopedic surgery Status: Acute (2) Syndesmotic disruption of left ankle Status: Acute
[2019-03-19] MEDS: Morphine 2 mg/ml ISec IVP PRN ×6 (04:08→21:05)
[2019-03-19 07:25] LABS: ALB/GLOB RATIO 1.4 (1.1-1.8); ALBUMIN 3.5 g/dL (3.0-4.8); ALT/SGPT 18 U/L (7-56); AST/SGOT 24 U/L (14-36); BLOOD UREA NITROGEN 9 mg/dL (7-21); CALCIUM 8.6 mg/dL (8.4-10.5); GFR NON-AFRICAN AMERICAN > 60
[2019-03-19 07:48] LABS: BASO # 0.01 K/mm3 (0.0-2.0); BASO % 0.1 % (0.0-3.0); EOS % 0.3 % (1.5-5.0); HEMOGLOBIN 10.8 g/dL (12.0-16.0); LYMPH # 1.6 (1.2-3.4); LYMPH % 18.4 % (22.0-35.0); MEAN CELL VOLUME 105.1 fl (80.0-105.0); MEAN CORPUSCULAR HEMOGLOBIN 34.3 pg (25.0-35.0); MEAN CORPUSCULAR HGB CONC 32.6 g/dl (31.0-37.0); MEAN PLATELET VOLUME 10.1 fl (7.0-11.0); MONO # 0.7 (0.1-0.6); MONO % 7.7 % (1.0-6.0); RBC 3.15 10^6/uL (3.5-6.1); RED CELL DISTRIBUTION WIDTH 12.9 % (11.5-14.5); WHITE BLOOD COUNT 8.8 10^3/uL (4.5-11.0)
[2019-03-19] MEDS: Enoxaparin 40 mg Syringe SC SCH (09:22)
--- NOTE | 2019-03-19 10:15 | OP ---
PROCEDURE DATE: 03/18/2019 PREOPERATIVE DIAGNOSES: Left ankle: 1. Trimalleolar equivalent fracture consisting of: A. Displaced medial malleolus fracture. B. Nondisplaced posterior malleolus fracture. C. Displaced avulsion fracture, distal tibia anterolateral aspect. 2. Syndesmotic injury with instability. 3. Multiple loose bodies medial aspect tibiotalar joint. 4. Partial anterior talofibular ligament tear. 5. Partial deltoid tear. 6. Lisfranc's ligament sprain. POSTOPERATIVE DIAGNOSES: Left ankle: 1. Trimalleolar equivalent fracture consisting of: A. Displaced medial malleolus fracture. B. Nondisplaced posterior malleolus fracture. C. Displaced avulsion fracture, distal tibia anterolateral aspect (syndesmosis anterior fibers insertion, complete destruction of syndesmosis fibers/detached from avulsion fragment) not amenable to fixation, very small fragile fragment. 2. Syndesmotic injury with significant syndesmotic instability. 3. Multiple loose bodies at medial aspect tibiotalar joint (multiple osteochondral fragments). 4. Partial tear, anterior talofibular ligament, grade 2 instability with firm endpoint. 5. Partial deltoid tear with grade 1-2 instability with firm endpoint (tested post medial malleolus ORIF). 6. Lisfranc sprain (stable). 7. Post-traumatic synovitis, tibiotalar joint. 8. Chondromalacia, medial aspect talar dome (focal area of acute injury measuring 6 mm x 6 mm at medial aspect talar dome). PROCEDURE: Left ankle: 1. Open reduction and internal fixation, trimalleolar equivalent fracture (open reduction and internal fixation medial malleolus fracture, closed treatment posterior malleolus fracture, open treatment distal tibia anterolateral fragment). 2. Syndesmotic fixation. 3. Arthrotomy tibiotalar joint/open exploration and removal of multiple loose bodies. 4. Arthrotomy tibiotalar joint/open extensive synovectomy. 5. Open chondroplasty talar dome, zone of chondral injury at medial aspect. 6. Placement in a short-leg splint. SURGEON: Maikel Zuñiga MD DIRECTOR VISUAL: Joe Singleton PA-C JUSTIFICATION FOR DIRECTOR VISUAL: Joe Singleton is a certified physician interior design assistant whose skilled surgical services were an absolute necessity for successful completion of the procedure as he provided skilled surgical assistance with positioning of the patient, positioning of extremity, management of surgical guido, retraction of neurovascular structures, surgical approach to medial malleolus, and open reduction and internal fixation of medial malleolus fracture with placement of two screws with washers, arthrotomy tibiotalar joint/ankle joint, irrigation and debridement and exploration tibiotalar joint, removal of multiple loose bodies tibiotalar joint, extensive synovectomy tibiotalar joint, surgical approach and placement of syndesmotic fixation/syndesmotic TightRope system and buttress plate, open treatment of distal tibia anterolateral fragment and evaluation of fragment, wound closure, placement of a short-leg splint, open chondroplasty talar dome. Emaus Mani was present for the entire case and was an absolute necessity for successful completion of the procedure. ANESTHESIA: General endotracheal anesthesia with a postop regional nerve block placed by Anesthesia staff in PACU. SPECIMENS: Multiple loose bodies (osteochondral and bony fragments). COMPLICATIONS: None. TOURNIQUET TIME: 40 minutes at 250 mmHg. ESTIMATED BLOOD LOSS: 20 mL. DRAINS: None. DISPOSITION: The patient was extubated and transferred to PACU in stable condition and tolerated the procedure well. IMPLANTS: Arthrex. 1. Syndesmotic TightRope system x2. 2. TightRope buttress two-hole plate. 3. Partially threaded cancellous screws, 4.0 mm screws x2 for medial malleolus open reduction and internal fixation (60 mm and 45 mm lengths) with washers. INDICATIONS FOR SURGERY: The patient is a 53-year-old female with no significant past medical history, who presented to the ER at [facility] on 03/17/2019 with left ankle pain and difficulty with weightbearing since 03/12/2019. She states that on 03/12/2019, she was walking down stairs at her building, she missed a step and fell landing on her left ankle resulting in immediate 10/10 pain localized to the medial aspect and globally at the ankle. She was unable to tolerate any weightbearing on left lower extremity. She rested for a few days and when the pain and swelling did not improve, she went to the ER at [facility] 03/15/2019. After evaluation by ER staff and review of imaging, she was diagnosed with left ankle displaced fracture. She was placed in a posterior and U splint and given crutches, instructed to be strict nonweightbearing to left lower extremity and to follow up with an orthopedic surgeon as an outpatient. She was having difficulty making appointments and her pain continued and it was difficult to control. She returned to the ER at [facility] on 03/17/2019. Orthopedic consultation was placed and I reviewed the imaging and had discussion with the ER attending about the status of the patient. The patient is an active, healthy woman, community ambulator without assistive devices. It was the patient's desire to treat her injury as soon as possible as her pain was not well controlled with pain medication by mouth. I evaluated the patient, had a long discussion with her in the ER on 03/17/2019. She rated her pain as 08/10 and constant and alleviated somewhat with ice and elevation. She denied any head trauma or LOC, denied syncopal episode and could recall the entire event/fall/trauma. 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 She was adamant about proceeding with surgical intervention if indicated as she did not want to delay her treatment and as a result increase her time off from work unnecessarily. On physical examination, left ankle had grade 1 swelling globally with the bony anatomy of the ankle well palpated including the gap at the medial malleolus fracture and the bony landmarks of the lateral malleolus and medial malleolus. I reviewed the initial x-rays which showed a displaced medial malleolus fracture, nondisplaced posterior malleolus fracture, syndesmotic instability, small displaced avulsion fragment from anterolateral aspect distal tibia. REVIEW OF IMAGING: CT scan, left ankle done on 03/17/2019 at [facility] ER showed a displaced medial malleolus fracture, nondisplaced posterior malleolus fracture, displaced avulsion fragment anterolateral aspect distal tibia at the insertion of the anterior fibers of the syndesmosis, evidence of syndesmotic instability. MRI done on 03/18/2019 at [facility] showed the displaced medial malleolus fracture, nondisplaced posterior malleolus fracture, complete disruption of the anterior fibers of the syndesmosis with the majority of the fibers torn and minimal fibers attached to the avulsion fragment of the distal tibia anterolateral aspect, partial tear of the deltoid ligament deep fibers high-grade, partial tear of the anterior talofibular ligament/ATFL, Lisfranc ligament sprain, medial cuneiform bone bruise, multiple loose bodies at medial aspect of tibiotalar joint, also seen on CT. After reviewing the imaging with the patient initially x-rays and CT finding, I reviewed the treatment options with her at length. Her treatment options were close reduction/close treatment and serial casting accepting the resulting malunion and possible nonunion of the medial malleolus and syndesmotic instability which for this active healthy female is not ideal versus surgical intervention. She wanted to maintain her activity level and continue her occupation and independence as much as possible. She was indicated for surgical intervention in the form of open reduction and internal fixation of medial malleolus fracture, closed treatment/conservative treatment of posterior malleolus fracture (the posterior malleolus fracture consisted of less than 10% of the articular surface and was not indicated for ORIF), evaluation of the distal tibia anterolateral avulsion fragment and possible fixation, arthrotomy of the tibiotalar joint/ankle joint and exploration with removal of loose bodies, and all related indicated procedures including evaluation under anesthesia, fluoroscopy of the Lisfranc ligament which was most likely stable and would not require any intervention and would scar in nicely with immobilization, evaluation/examination of ATFL and deltoid ligament tears under anesthesia and fluoroscopy and treatment of both ligament injuries conservatively with most likely would scar in nicely with immobilization postoperatively. The risks, benefits, alternatives to the procedure were discussed in length with the patient with the risks including but not limited to infection, neurovascular damage, malunion, nonunion, failure of hardware, failure of fixation, need for further surgery, need for future ATFL repair/reconstruction, post-traumatic DJD, inability to return to preinjury level of activity and potentially occupation, development of chronic pain and disability, development of blood clots including DVT and PE, loss of function, loss of limb, cardiopulmonary perioperative complications, anesthesia reactions including . After answering all her questions, she stated that she understood the risks and wished to proceed with surgery. She was admitted to the medical service under Dr. Arias Bar and surgery was done the next morning on the elective schedule at [facility] on 07/19/2019. The next day in the preoperative area, the MRI findings were reviewed at length with the patient with the above surgical plan confirmed with the MRI revealing the partial ATFL and deltoid ligament tears, sprain of the Lisfranc's ligament, medial cuneiform bone bruise, complete anterior fibers syndesmotic disruption with the majority of the fibers detached from the distal tibia anterolateral fragment/small fracture. Medical optimization/risk stratification/medical clearance was obtained and provided by Dr. Arias Bar with the patient determined to be minimal risk for surgery and the procedure was carried out. PROCEDURE IN DETAIL: The patient was identified in the preoperative holding area and the left ankle was marked for surgery. The previously placed cast was removed and the skin and soft tissue was inspected once again. The patient had been placed in a well-padded cast with a good mold stabilizing the ankle and the medial malleolus fragment in the ER the previous day. The skin was inspected and indeed there was significant improvement in swelling as the patient was compliant with elevation of the ankle above the level of her heart for the past 24 hours during the admission. Bony landmarks and anatomy of the ankle was palpated easily. It was safe to proceed with the surgery. The risks, benefits and alternatives to the procedure were discussed at length with the patient once again and informed consent was obtained and confirmed. After brief discussion with Anesthesia staff, the patient was taken to operating room and placed on a well-padded operating room table with all bony prominences and superficial neurovascular structures well padded. An initial time-out was done with the surgeon, Anesthesia staff, OR staff, all in agreement with the patient, procedure being done and the extremity being operated on. General anesthesia was administered without difficulty or complication. Examination under anesthesia and fluoroscopy was then carried out. EXAMINATION UNDER ANESTHESIA AND FLUOROSCOPY: Left ankle with full range of motion compared to contralateral ankle. Skin intact. There was grade 1 residual swelling still present. Bony landmarks and anatomy was easily palpated. External rotation stress examination was carried out under biplanar and dynamic fluoroscopy showing significant syndesmotic instability with significant widening of the syndesmotic joint space. Lisfranc ligament and joint were evaluated under biplanar and dynamic fluoroscopy and was found to be stable with no Lisfranc widening or evidence of any Lisfranc instability. The anterior talofibular ligament displayed grade 2 anterior drawer with a firm endpoint and grade 1 talar tilt. Deltoid ligament was evaluated after the medial malleolus ORIF was completed and indeed was found to have grade 1-2 residual instability with a firm endpoint. Under fluoroscopic imaging, it was clear that the medial malleolus fracture was displaced and unstable, the posterior malleolus fracture was nondisplaced and stable, the small fragment at the distal tibia anterolateral aspect creating a trimalleolar equivalent clinical picture was present but indeed a very small fragment and did not appear to move with the syndesmosis stress evaluation indicating that at least the majority of the anterior syndesmotic ligament fibers were detached from the fragment. The ankle joint itself appeared to be unstable with ability to sublux the talus laterally and medially. CONTINUATION OF PROCEDURE: Tourniquet was placed high on the left thigh and set to 250 mmHg. The left lower extremity was prepped and draped in standard sterile fashion. Final time-out was done with the surgeon, anesthesia staff, OR staff, all in agreement with the patient, procedure being done, and extremity being operated on. Perioperative IV antibiotics were administered after general anesthesia was administered successfully. We started the procedure with a medial arthrotomy to the tibiotalar joint as well as the medial malleolus ORIF surgical approach. SURGICAL APPROACH TO MEDIAL MALLEOLUS AND MEDIAL ASPECT OF TIBIOTALAR JOINT: The left lower extremity was exsanguinated and tourniquet was inflated for a total tourniquet time of 40 minutes at 250 mmHg. A 5 cm curvilinear incision was made centered over the anterior aspect of the medial malleolus or the anterior colliculi of the medial malleolus. Incision was made through the skin down to the subcutaneous tissue while maintaining good hemostasis down to the level of the fascia and deltoid ligament. The deltoid ligament was evaluated and at least on the superficial aspect was found to be intact. The medial malleolus fracture was then displaced allowing access to the medial aspect of the tibiotalar joint. ARTHROTOMY, TIBIOTALAR JOINT/OPEN EXPLORATION AND REMOVAL OF LOOSE BODIES: Through the medial malleolus fracture, we gained access to the medial aspect of the tibiotalar joint and had full access to the talar dome. The multiple loose bodies were immediately seen and successfully removed. These were multiple small osteochondral fragments and bony fragments that were entrapped within the tibiotalar joint. Once the loose bodies were removed, the ankle joint was copiously irrigated to ensure full removal of all debris. We then turned our attention to evaluation of the ankle joint itself. There was significant hypertrophic and inflamed post-traumatic synovitis throughout the entire anterior aspect of the ankle joint as well as the medial and lateral gutters. The talus exhibited a focal area of what appeared to be an acute chondral injury as a grade 3 lesion with no full-thickness chondral defects seen. There was some unstable chondral fragmentation and fibrillation that was easily debrided. An open chondroplasty of the medial talar dome was then carried out establishing a smooth contour to the chondral surface. We then proceeded with an open extensive synovectomy of the tibiotalar joint through the arthrotomy removing all the inflamed hypertrophic synovitis throughout the anterior and medial and lateral gutters. This was done while maintaining good hemostasis. Once the extensive synovectomy was carried out, the tibiotalar joint was copiously irrigated once again ensuring that all of the osteochondral and bony loose bodies/fragments were removed successfully. The medial malleolus fracture was then anatomically reduced with the use of a large reduction clamp. While maintaining the anatomic reduction, biplanar fluoroscopy was used to confirm an anatomic reduction indeed was present. Once the fluoroscopic imaging was used to confirm the anatomic reduction, we then proceeded with placement of two K-wires for placement of two cannulated 4.0 mm cancellus screws as the fixation of choice for the medial malleolus fracture. The posterior K-wire was placed first with biplanar fluoroscopic imaging confirming good placement of the K-wire with no intraarticular extension. The K-wire was placed perpendicular to the fracture plane with an anterior to posterior trajectory and medial to lateral trajectory. A second K-wire was placed parallel to the posterior K-wire just anterior with good spacing to allow for placement of both screws with washers. The second K-wire was confirmed to be in a good position with similar trajectory parallel to the previous K-wire with no intraarticular extension. The K-wires were both advanced up to the posterior cortex of the distal tibia and measurements were taken. Two self-tapping, self-drilling, long thread, partially threaded 4.0 cancellous screws were selected with the anterior screw being 60 mm long and the posterior screw being 45 mm long with washers. The screws were then placed over the K-wires successfully with good fixation achieved and good compression across the medial malleolus fracture. Both screws were placed bicortically with good purchase of the posterior cortex providing good stability and fixation. Once the screws were confirmed to be in a good position and biplanar fluoroscopic imaging was used to confirm no intraarticular extension and good placement of screws, then the K-wires were removed and the wound was copiously irrigated. The small incisions in the deltoid ligament made in-line with the deltoid fibers were then repaired with #1 Vicryl suture over the head and washer of the screws to provide both a buffer of soft tissue over the screw heads as well as repair of the deltoid ligament. Once this was carried out to satisfaction, we then left the medial wound open to allow for ease of placement of the syndesmotic fixation. OPEN SYNDESMOTIC FIXATION/REPAIR AND EVALUATION OF DISTAL TIBIA ANTEROLATERAL FRAGMENT: Once the medial malleolus ORIF was completed, another external rotation stress examination was carried out and indeed there was still significant syndesmotic instability present with syndesmotic widening. Again with dynamic and biplanar fluoroscopic imaging, it was confirmed that the small avulsion fragment of the distal tibia anterolateral aspect was not moving with the syndesmotic widening and did not appear to be attached to the syndesmotic fibers. We then proceeded with the surgical approach to the distal fibula and the distal tibial fragment. Incision was made through the skin down to the subcutaneous tissues down to level of the fascia. Prior to proceeding with the syndesmotic fixation, the tourniquet was deflated and good hemostasis was achieved on the medial incision. Again the approach to the distal fibula was carried out. An incision was made measuring approximately 5 cm in length to allow for access to the distal tibia anterolateral fragment. Incision was made through the skin down to the subcutaneous tissue while maintaining good hemostasis down to the level of the peroneal fascia. The distal tibia lateral cortex was identified and the overlying periosteum was sharply incised to allow for placement of the buttress plate with periosteal repair placed over the plate and the syndesmotic buttons to provide soft tissue buffer. We then turned our attention to evaluation of the avulsion fragment of the distal tibia anterolateral aspect. The syndesmotic ligament anterior fibers were visualized and inspected and indeed were found to be attenuated and torn significantly. Only approximately 10% of the syndesmotic fibers were actually still attached to the fragment. The remaining fibers were nonfunctional and completely torn. The fragment itself was very small and of poor quality bone. It appeared to be a very thin wafer of bone that was not amendable to fixation with a screw and did not appear to involve significant articular surface under direct inspection. The fragment itself sat anterior to the distal fibula and did not appear to cause any mechanical symptoms. Instead of disturbing the soft tissue and exposing the anterolateral ankle and distal tibia, I decided to leave the fragment along as it did not appear to be causing any mechanical symptoms and did not have enough syndesmotic fibers attached to it to play a role in syndesmotic stability. We then proceeded with direct syndesmotic fixation with the syndesmotic TightRope replacement. Optimal positioning for the distal syndesmotic TightRope was identified approximately 1-1.5 cm proximal to the tibiotalar joint. The buttress plate was pinned with a pin to the lateral aspect of the distal fibula cortex and K-wire from the TightRope syndesmotic system was advanced parallel to the tibiotalar joint through the lateral cortex of the distal fibula and the medial cortex of the distal fibula to the lateral cortex of the distal tibia and the medial cortex of the distal tibia with a 20-degree posterior to anterior inclination through all four cortices. Biplanar fluoroscopic imaging was used to confirm that this was optimal placement for syndesmotic fixation. Prior to advancement of the K-wire, a large periarticular reduction clamp was placed, reducing the syndesmosis and closing down the syndesmotic widening. Once the K-wire was in good position, the cannulated drill was passed over the K-wire through all four cortices. The K-wire and the drill were removed and the wound was copiously irrigated removing the bony fragments and any residual metal debris. A syndesmotic TightRope was then advanced through all four cortices from lateral to medial through the fibula into the tibia and under direct visualization through the medial wound, the medial button was flipped and placed directly onto the medial cortex of the distal tibia with no interposed soft tissue. Once the button was confirmed to be sitting flat under direct visualization, the TightRope was then cinched down with the lateral button well seated within the buttress plate and tightened down. These tests were then repeated for placement of the proximal TightRope with similar trajectory and placement with less posterior to anterior inclination to avoid convergence. The K-wire was passed through all four cortices followed by the cannulated drill and copious irrigation to remove bony fragments and any residual metal fragments. The TightRope system was then advanced through all four cortices from lateral to medial and under direct visualization once again the medial button was flipped and set directly onto the medial cortex of the distal tibia with no interposed soft tissue. The lateral button was then advanced and the TightRope cinched down with the lateral button well seated within the proximal hole of the buttress plate. The periarticular reduction clamp was then removed and repeat external rotation stress examination and cotton test was carried out with dynamic and biplanar fluoroscopic imaging confirming the syndesmotic stability and reduction had been successfully carried out. Final tightening of the syndesmotic TightRope was carried out and the suture was tied down over itself as a backup. Excess suture was removed and the wound was copiously irrigated. Again the distal tibia anterolateral fragment was a thin wafer of poor quality bone that was not amendable to fixation and did not play a role in syndesmotic stability. To avoid soft tissue disruption further and potential injury to surrounding soft tissue, the fragment was left alone as it did not appear to play any mechanical issues with range of motion or movement. We then proceeded with wound closure. With the use of #1 Vicryl suture, the periosteum was reapproximated over the buttress plate and TightRope buttons. The deep tissue was then reapproximated with #1 Vicryl suture followed by 2-0 Vicryl suture for subcutaneous tissue followed by tali for skin. We then turned our attention to the medial wound closure. Again, the deltoid ligament had been reapproximated over the head and washers of the screws at the medial malleolus ORIF. The medial TightRope buttons were then buried under the periosteum of the distal tibia medial aspect to provide a soft tissue buffer as well. Deep tissue was then reapproximated with #1 Vicryl suture followed by subcutaneous tissue reapproximated with 2-0 Vicryl suture followed by tali for skin. Sterile dressings were applied and then the ankle and foot were placed in a well-padded posterior and U splint from the toes up to the tibial tuberosity. A layer of compressive Ponce wrap was placed over the splint and once the splint hardened the patient was then awakened from anesthesia and transferred to PACU in stable condition. DISPOSITION: The patient will remain as an inpatient overnight to receive adequate pain control. She will be started on DVT prophylaxis in the form of 40 mg subcutaneous injection starting postoperative day #1 in the morning. She will work with physical therapy and ensure that she is safely ambulating with crutches or a walker while maintaining strict nonweightbearing to the left lower extremity. She will receive a prescription for Percocet for pain control and a prescription for Lovenox for 2 weeks for postoperative DVT prophylaxis, once daily injection 40 mg subcutaneous Lovenox. The medical team will round on her and discharge her accordingly. She will follow up in my office at [facility] within 1 week and already has a postoperative appointment set up. Maikel Zuñiga MD
[2019-03-19] MEDS: Oxycodone/Acetaminophen 5/325 mg Tab PO PRN ×2 (15:13→20:20)
--- NOTE | 2019-03-19 16:41 | PN ---
DATE: 03/19/2019 SUBJECTIVE: She had a fall with a left ankle fracture. She is status post day #1 of an ORIF of the left ankle. The leg is in a cast. She is on Ancef, Lovenox, morphine, Percocet, IV fluids and Zofran. She is trying to get her body moving, she is having a very hard time. She tells me her house is eight flights of stairs and at this moment, there is no way she is going to pull it together. There was a thought of her being discharged; I do not see that happening today. She cannot even move in bed to get out of bed, to go to the bedside commode. PHYSICAL EXAMINATION: VITAL SIGNS: She has a 98.4 temperature, 82 pulse, 116/74 blood pressure, 20 respiratory rate, 95% sat on room air. HEAD: Atraumatic and normocephalic. HEART: Regular rate. LUNGS: Clear to auscultation. ABDOMEN: Soft. EXTREMITIES: The left leg is in a cast, postop day #1 left ankle ORIF. LABORATORY DATA: 8.8 white count, 10.8 hemoglobin, 33.1 hematocrit with 235 platelets. 136 sodium, potassium 3.7, BUN 9, creatinine 0.4, GFR greater than 60. Sugar is 107, calcium 8.6, 1.7. Total bili is 0.6, AST is 24, ALT is 18, alk phos 70, total protein 6.1. Urine was moderate bacteria. She is on Ancef. She is being seen by the orthopedic doctor. ASSESSMENT AND PLAN: The plan is going to be , I cannot imagine her able to get home eight flights of stairs. She lives alone. So we will keep her here with the treatment, physical therapy, possibly get her out of bed to chair with help. I will call in case filler to help me get her to a [facility]. I will discuss this with Orthopedics. Arias Bar DO [facility]
[2019-03-20] MEDS: Morphine 2 mg/ml ISec IVP PRN ×4 (00:07→11:34)
[2019-03-20] MEDS: Oxycodone/Acetaminophen 5/325 mg Tab PO PRN ×6 (01:44→23:38)
[2019-03-20] MEDS: Sodium Chloride 0.45% 1,000 ML IV SCH (01:47)
[2019-03-20 07:31] LABS: HEMOGLOBIN 11.3 g/dL (12.0-16.0); MEAN CELL VOLUME 107.3 fl (80.0-105.0); MEAN CORPUSCULAR HEMOGLOBIN 34.6 pg (25.0-35.0); MEAN CORPUSCULAR HGB CONC 32.2 g/dl (31.0-37.0); MEAN PLATELET VOLUME 10.2 fl (7.0-11.0); RBC 3.27 10^6/uL (3.5-6.1); RED CELL DISTRIBUTION WIDTH 12.9 % (11.5-14.5); WHITE BLOOD COUNT 6.8 10^3/uL (4.5-11.0)
[2019-03-20 08:04] LABS: ALB/GLOB RATIO 1.3 (1.1-1.8); ALBUMIN 3.6 g/dL (3.0-4.8); ALT/SGPT 13 U/L (7-56); AST/SGOT 22 U/L (14-36); BLOOD UREA NITROGEN 6 mg/dL (7-21); CALCIUM 8.8 mg/dL (8.4-10.5); GFR NON-AFRICAN AMERICAN > 60
[2019-03-20] MEDS: Enoxaparin 40 mg Syringe SC SCH (10:00)
[2019-03-20] MEDS: Morphine 4 mg/ml ISec IVP PRN ×3 (15:12→21:56)
--- NOTE | 2019-03-20 19:24 | PN ---
DATE: 03/20/2019 SUBJECTIVE: She is status post day #2 of left ankle fracture and was sent to the emergency room by phone call by the orthopedic doctor. Eventually did ORIF of the left ankle and area, now she is in a cast and a lot of pain. I did bump up a morphine to 3 every 3 hours from 2 every 3 hours IV. She cannot stand on and she cannot walk. She cannot do the crutches. She has eight flights of stairs at home. She does not know what she is going to do. She is agreeable to go to a [facility] until she gets strong enough and the pain is not as bad. So I am hoping tomorrow, Thursday the 03/21 social security benefits interviewer and case management can work with her insurance to get her to a [facility] may be [facility]. MEDICATIONS: She is on IV fluids, Lovenox, morphine and Zofran. PHYSICAL EXAMINATION: VITAL SIGNS: She has a 98.2 temperature, 84 pulse, 122/83 blood pressure, 18 respiratory rate, 95% sat on room air. HEENT: Head is atraumatic, normocephalic. HEART: Regular rate. LUNGS: Decreased breath sounds. ABDOMEN: Soft. EXTREMITIES: Left leg is casted status post surgery and she is in a lot of pain. LABORATORY DATA: Sodium 140, potassium 3.6, BUN 6, creatinine 0.5, GFR 60, sugar is 100, calcium 8.8, total bili is 0.5. AST is 22, ALT 13, alk phos is 7, total protein 6.5. White count 6.8, hemoglobin 11.3, hematocrit 35.1, platelets of 223. ASSESSMENT AND PLAN: She is being seen by Surgery. She has a very bad displaced medial malleolus fracture plus a nondisplaced posterior malleolar fracture and displaced avulsion fracture distal tibia anterolateral aspect. Lot of issues in that ankle. Hoping she can get to [facility] tomorrow and then home eventually when she is physically capable of doing stairs and handling herself a crutches. Arias Bar DO
[2019-03-21] MEDS: Morphine 4 mg/ml ISec IVP PRN ×6 (01:32→21:08)
[2019-03-21] MEDS: Oxycodone/Acetaminophen 5/325 mg Tab PO PRN ×5 (04:01→23:17)
[2019-03-21 07:06] LABS: HEMOGLOBIN 10.3 g/dL (12.0-16.0); MEAN CELL VOLUME 107.3 fl (80.0-105.0); MEAN CORPUSCULAR HEMOGLOBIN 34.2 pg (25.0-35.0); MEAN CORPUSCULAR HGB CONC 31.9 g/dl (31.0-37.0); MEAN PLATELET VOLUME 9.8 fl (7.0-11.0); RBC 3.01 10^6/uL (3.5-6.1); RED CELL DISTRIBUTION WIDTH 12.7 % (11.5-14.5); WHITE BLOOD COUNT 5.5 10^3/uL (4.5-11.0)
[2019-03-21 07:19] LABS: ALB/GLOB RATIO 1.2 (1.1-1.8); ALBUMIN 3.4 g/dL (3.0-4.8); ALT/SGPT 11 U/L (7-56); AST/SGOT 29 U/L (14-36); BLOOD UREA NITROGEN 8 mg/dL (7-21); CALCIUM 8.9 mg/dL (8.4-10.5); GFR NON-AFRICAN AMERICAN > 60
[2019-03-21] MEDS: Enoxaparin 40 mg Syringe SC SCH (09:14)
[2019-03-21 23:01] VITALS: RESP 18
--- NOTE | 2019-03-21 23:59 | DS ---
HISTORY OF PRESENT ILLNESS: She was here on Thursday with a fractured left ankle, did surgery and now I am hoping she can go to a [facility], she has eight flights of stairs at home. She is recommended to do [facility] by physical therapy. She could barely do the crutches. She is on Lovenox, morphine, Percocet and Zofran. PHYSICAL EXAMINATION VITAL SIGNS: She has a 98.1 temperature, 89 pulse, 144/83 blood pressure, 20 respiratory rate and 98% O2 sat. HEENT: Her head is atraumatic and normocephalic. HEART: Regular rate. LUNGS: With decreased breath sounds. ABDOMEN: Soft. EXTREMITIES: The left leg to the cast, she is having a hard time with this. LABORATORY DATA: A 5.5 white count, 10.3 hemoglobin, 32.3 hematocrit with 231 platelets. A 141 sodium, potassium 4.2, BUN 8, creatinine 0.5, GFR is greater than 60, sugar is 100, calcium is 8.9, total bili is 0.3, AST is 29, ALT is 11, alk phos 63 and total protein 6.2. I discussed with case management and social service worker, I am hoping that we could discharge her to [facility] today. Continue with pain medications and treatment there. Status post fractured left ankle and status post ORIF. Arias Bar DO
[2019-03-22] MEDS: Morphine 4 mg/ml ISec IVP PRN ×2 (03:44→08:23)
[2019-03-22] MEDS: Oxycodone/Acetaminophen 5/325 mg Tab PO PRN ×3 (05:39→15:44)
[2019-03-22] MEDS: Enoxaparin 40 mg Syringe SC SCH (10:53)
--- NOTE | 2019-03-22 12:47 | PN ---
DATE: 03/22/2019 SUBJECTIVE: I hoping to discharge her soon to a rehab or a place where she can get good physical therapy. I want her to use the crutches before she can go home. She is 8 flights of stairs and she cannot do this at this time. She is on Lovenox, morphine as needed, Percocet, Zofran. She has a fractured left ankle and status post ORIF. PHYSICAL EXAMINATION: VITAL SIGNS: She has a 98.4 temp, 82 pulse, 114/75 blood pressure, 18 respiratory rate, 95% O2 sat on room air. HEENT: Head is atraumatic, normocephalic. HEART: Regular rate. LUNGS: Clear to auscultation. ABDOMEN: Soft. EXTREMITIES: Left foot is bandaged and casted. LABORATORY DATA: She has a 5.5 white count, 10.3 hemoglobin, 32.3 hematocrit with 231 platelets. Sodium 141, potassium 4.2, BUN is 8, creatinine 0.5, GFR is greater than 60, sugars is 100, calcium is 8.9, total bili is 0.3, AST is 29, ALT is 11, alk phos is 58, total protein 6.2. ASSESSMENT AND PLAN: She is okay except for the left ankle and repair. When drug abuse social worker and case management can find her place, we will discharge her. Hopefully, that will be soon. Arias Bar DO [email or web address]
[2019-03-22 13:43] VITALS: BP 124/61; PULSE 84; TEMP 98.6; O2SAT 97
--- NOTE | 2019-03-22 14:20 | CP.PCM.PN ---
Subjective - Date & Time of Evaluation Date of Evaluation: 03/22/19 Time of Evaluation: 14:16 - Subjective Subjective: Patient still complaining of ankle pain, but it is getting better. She is tolerating crutches well, and initiated stairs today. Patient lives on 3rd floor walk up and has 8 sets of 8 stairs into apt, lives alone. D/c to [facility] today planned. Denies numbness/tingling. Denies CP/SOB/dizziness. Objective - Vital Signs/Intake and Output Vital Signs (last 24 hours): Temp Pulse Resp BP Pulse Ox 98.6 F 84 18 124/61 97 03/22/19 13:42 03/22/19 13:42 03/22/19 13:42 03/22/19 13:42 03/22/19 13:42 Intake and Output: 03/22/19 03/22/19 06:59 18:59 Intake Total 800 360 Balance 800 360 - Medications Medications: Current Medications Enoxaparin Sodium (Lovenox) 40 mg SC DAILY LUDIVINA; Protocol Last Admin: 03/22/19 10:53 Dose: 40 mg Ondansetron HCl (Zofran Inj) 4 mg IVP ONCE PRN PRN Reason: Nausea/Vomiting Oxycodone/Acetaminophen (Percocet 5/325 Mg Tab) 2 tab PO Q4H PRN PRN Reason: Pain, moderate (4-7) Stop: 03/24/19 15:37 Last Admin: 03/22/19 10:54 Dose: 2 tab - Labs Labs: 03/21/19 06:15 03/21/19 06:15 PT 11.6 SECONDS (9.4-12.5) 03/17/19 14:24 INR 1.05 03/17/19 14:24 APTT 32.9 Seconds (26.9-38.3) 03/17/19 14:24 - Extremities Exam Additional comments: splint removed. incisions intact, mild erythema, +ROM ankle/toes, sensation intact +DP/PT pulses calves soft NT neg homans noted tenderness to proximal fibula and ecchymosis proximally Assessment and Plan (1) Ankle fracture, bimalleolar, closed Assessment & Plan: POD#4 s/p ORIF medial mal/syndesmosis NWB SLC applied, well padded, keep dry and intact, NVID pre and post cast application cont stacia will follow at [facility] cont PT for ambulation training ortho stable for d/c will check for proximal fibular fracture, patient is for transfer to [facility] at this time, does not change mgmt will get xrays at [facility] as to not delay discharge d/w Dr. David, agrees with abvoe Status: Acute (2) Syndesmotic disruption of left ankle Status: Acute
== END 2019-03-22 18:25 | DRG 494 ==
LOC: ED 10:55 → ERH 12:45 → 5RNO 14:52
PROVIDERS: ADMIT Family Medicine; ATTEND Family Medicine
PROC: 0SCG0ZZ Extirpation of Matter from Left Ankle Joint, Open Approach (ICD-10-PCS; 2019-03-18)
PROC: 0SBG0ZZ Excision of Left Ankle Joint, Open Approach (ICD-10-PCS; 2019-03-18)
PROC: 3E0T3BZ Introduction of Anesthetic Agent into Peripheral Nerves and Plexi, Percutaneous Approach (ICD-10-PCS; 2019-03-18)
PROC: 0QSH04Z Reposition Left Tibia with Internal Fixation Device, Open Approach (ICD-10-PCS; principal; 2019-03-18 10:15)
DX: S82.842A Displaced bimalleolar fracture of left lower leg, initial encounter for closed fracture (principal); M24.072 Loose body in left ankle; S93.432A Sprain of tibiofibular ligament of left ankle, initial encounter; S93.422A Sprain of deltoid ligament of left ankle, initial encounter; M94.272 Chondromalacia, left ankle and joints of left foot; E83.42 Hypomagnesemia; W10.9XXA Fall (on) (from) unspecified stairs and steps, initial encounter; Y93.01 Activity, walking, marching and hiking; Y92.89 Other specified places as the place of occurrence of the external cause